=== PATIENT | female | born 1935 | race Caucasian/White ===

== ENCOUNTER 2017-11-16 12:01 | Emergency (ER) | payer MEDICARE, BC, OTHER ==
[~2017-11-16] VITALS: Ht 154.9 cm; Wt 108.9 kg
[2017-11-16] MEDS ORDERED: ATENOLOL 50MG T50 M1 PO (12:20)
[2017-11-16] MEDS ORDERED: ELIQUIS5 MG PO (12:20)
[2017-11-16] MEDS ORDERED: POTASSIUM20 PO (12:21)
[2017-11-16 12:30] LABS: ABSOLUTE EOSINOPHILS 0.1 thou/uL (0.0-0.7); ABSOLUTE LYMPHOCYTES 1.3 thou/uL (0.8-5.3); BASOPHILS 0.8 %; EOSINOPHILS 1.9 %; HEMOGLOBIN 13.6 gm/dL (12.0-15.0)
[2017-11-16 12:33] LABS: ABSOLUTE BASOPHILS 0.1 thou/uL (0.0-0.2); ABSOLUTE MONOCYTES 0.8 thou/uL (0.0-1.2); ABSOLUTE NEUTROPHILS 4.3 thou/uL (1.6-8.1); HEMATOCRIT 40.5 % (37.0-47.0); LYMPHOCYTES 19.2 %; MCH 30.7 pg (26.0-34.0); MCHC 33.6 g/dL (28.0-37.0); MCV 91.1 fL (80.0-100.0); MONOCYTES 12.6 %; MPV 9.1 fl. (7.2-11.1); NUCLEATED RBCS 0 /100WBC; PLATELET COUNT* 172 thou/uL (150-400); POLYS 65.5 %; RBC 4.44 mil/uL (4.20-5.00); RDW-CV 14.2 % (10.5-14.5); WBC 6.6 thou/uL (4.0-11.0)
[2017-11-16] MEDS ORDERED: NORVASC2.5 MG PO (12:35)
[2017-11-16] MEDS ORDERED: HYDROCHLOROTHIA25 M2 PO (12:35)
[2017-11-16] MEDS ORDERED: FOLBEE PLUS CZ1 EACH PO (12:35)
[2017-11-16] MEDS ORDERED: CYMBALTA30 MG PO (12:36)
[2017-11-16] MEDS ORDERED: TOPROL XL50 MG PO (12:36)
[2017-11-16] MEDS ORDERED: COUMADIN 5 MG TA5 M1 PO (12:36)
[2017-11-16] MEDS ORDERED: TRICOR145 MG PO (12:37)
[2017-11-16] MEDS ORDERED: TRAZODONE HCL50 MG PO (12:37)
[2017-11-16] MEDS ORDERED: PROZAC 20 MG20 MG PO (12:37)
[2017-11-16 12:38] LABS: CALCIUM 9.3 mg/dL (8.5-10.1); CREATININE 1.2 mg/dL (0.6-1.3); POTASSIUM 3.8 mmol/L (3.5-5.1)
[2017-11-16 12:43] LABS: ALBUMIN 3.1 g/dL (3.4-5.0); TOTAL BILIRUBIN 0.6 mg/dL (<0.1-1.0); TOTAL PROTEIN 7.1 g/dL (6.4-8.2)
[2017-11-16 13:38] LABS: URINE BILIRUBIN NEGATIVE (Negative); URINE BLOOD NEGATIVE (Negative); URINE CLARITY CLEAR; URINE COLOR YELLOW; URINE GLUCOSE-RANDOM NEGATIVE (Negative); URINE KETONES NEGATIVE (Negative); URINE LEUKOCYTES-REFLEX 1+ (Negative); URINE NITRITE-REFLEX POSITIVE (Negative); URINE PROTEIN NEGATIVE (Negative)
[2017-11-16 13:53] LABS: SQUAMOUS 4-10 Moderate /LPF (0-3); URINE WBC-REFLEX 0-5 Rare /HPF (0-5)
[2017-11-16 13:54] LABS: BACTERIA-REFLEX >30 Many /HPF (None Seen); CASTS None Seen /LPF (None Seen); CRYSTALS None Seen /LPF (None Seen); MUCUS None Seen strn/LPF (None Seen); URINE RBC 3-10 Few /HPF (0-2)
[2017-11-16 14:27] VITALS: BP 128/65
== END 2017-11-16 14:28 | disposition home or self-care (01) ==
LOC: M.ERS 12:01
PROVIDERS: Physician Assistant Surgical
DX: K59.00 Constipation, unspecified (principal); K21.9 Gastro-esophageal reflux disease without esophagitis; I10 Essential (primary) hypertension; M19.90 Unspecified osteoarthritis, unspecified site; I48.91 Unspecified atrial fibrillation; Z88.8 Allergy status to other drugs, medicaments and biological substances; Z96.652 Presence of left artificial knee joint; Z88.6 Allergy status to analgesic agent; Z88.0 Allergy status to penicillin

== ENCOUNTER 2018-04-12 18:56 | Inpatient (IN) | payer MEDICARE, BC, OTHER ==
[~2018-04-12] VITALS: Ht 157.5 cm; Wt 102.1 kg
[~2018-04-12 18:56] MED LIST: ATENOLOL 50MG T50 M1 PO; COUMADIN 5 MG TA5 M1 PO; CYMBALTA30 MG PO; ELIQUIS5 MG PO; FOLBEE PLUS CZ1 EACH PO; HYDROCHLOROTHIA25 M2 PO; NORVASC2.5 MG PO; POTASSIUM20 PO; PROZAC 20 MG20 MG PO; TOPROL XL50 MG PO; TRAZODONE HCL50 MG PO; TRICOR145 MG PO
[2018-04-12 18:58] VITALS: BP 158/100
[2018-04-12 20:31] LABS: HEMATOCRIT 42.2 % (37.0-47.0); HEMOGLOBIN 14.1 gm/dL (12.0-15.0); MCH 30.7 pg (26.0-34.0); MCHC 33.4 g/dL (28.0-37.0); MCV 92.1 fL (80.0-100.0); MPV 10.5 fl. (7.2-11.1); NUCLEATED RBCS 0 /100WBC; PLATELET COUNT* 133 thou/uL (150-400); RBC 4.58 mil/uL (4.20-5.00); RDW-CV 13.5 % (10.5-14.5); WBC 12.3 thou/uL (4.0-11.0)
[2018-04-12 20:40] LABS: APTT 33.8 Seconds (25.0-31.3); INR 1.3; PROTIME 13.1 Seconds (9.20-11.50)
[2018-04-12 20:50] LABS: CALCIUM 9.3 mg/dL (8.5-10.1)
[2018-04-12 20:51] LABS: POTASSIUM 2.9 mmol/L (3.5-5.1)
[2018-04-12 20:54] LABS: URINE BILIRUBIN NEGATIVE (Negative); URINE BLOOD 2+ (Negative); URINE CLARITY CLEAR; URINE COLOR YELLOW; URINE GLUCOSE-RANDOM 1+ (Negative); URINE KETONES NEGATIVE (Negative); URINE LEUKOCYTES-REFLEX NEGATIVE (Negative); URINE NITRITE-REFLEX NEGATIVE (Negative); URINE PROTEIN 3+ (Negative)
[2018-04-12 21:07] LABS: ALBUMIN 2.9 g/dL (3.4-5.0); CK-MB MASS 2.6 ng/mL (<0.5-3.6); TOTAL PROTEIN 7.4 g/dL (6.4-8.2); TROPONIN-I LEVEL 0.22 ng/mL (<0.06)
[2018-04-12 21:17] LABS: ABSOLUTE MONOCYTES 0.7 thou/uL (0.0-1.2); ABSOLUTE NEUTROPHILS 10.6 thou/uL (1.6-8.1); ATYPICAL LYMPHS 1 %
[2018-04-12 21:18] LABS: LARGE PLATELETS OCCASIONAL
[2018-04-12 21:19] LABS: PLATELET ESTIMATE DECREASED
[2018-04-12 21:20] LABS: POLYCHROMASIA 1+
[2018-04-12] MEDS ORDERED: LEVAQUIN 500 M500 M2 PO (21:34)
[2018-04-12] MEDS ORDERED: TESSALON PERLE100 MG PO (21:35)
[2018-04-12] MEDS ORDERED: LASIX 20 MG TAB20 MG PO (21:38)
[2018-04-12 21:46] LABS: SQUAMOUS 4-10 Moderate /LPF (0-3)
[2018-04-12 21:47] LABS: BACTERIA-REFLEX 1-9 Few /HPF (None Seen); CASTS None Seen /LPF (None Seen); CRYSTALS None Seen /LPF (None Seen); URINE RBC 3-10 Few /HPF (0-2); URINE WBC-REFLEX 0-5 Rare /HPF (0-5)
[2018-04-12 23:45] VITALS: BP 167/84
[2018-04-13 00:15] VITALS: BP 122/83
[2018-04-13 04:00] VITALS: BP 151/82
--- NOTE | 2018-04-13 09:23 | NUR ---
PT ADMITTED TO ROOM 213 DURING TEACHER; VSS, LABORED BREATHING, A+OX3, VISIBLE SKIN ALTERATIONS, UP SBA, FALL RISK, SEPSIS SCREEN POSITIVE. SHE IS ABLE TO COMMUNICATE HER NEEDS TO STAFF EFFECTIVELY. SHE HAS DENIED THE NEED FOR PAIN MEDICATION UP TO THIS TIME. NPO FOR A CARDIOLOGY CONSULT TODAY.
--- NOTE | 2018-04-13 09:41 | NUR ---
ASSUMED PT CARE AT 0700 REPORT RECEIVED FROM NURSE PT IS AOX4 WHEEZY LUNG SOUND. ON NS AT 100 CC PER HOUR. VSS. O2 SATURATION IS 97% ON 2 L NC. NO TEMP. PT VOICED NO CONCERN. DR DELAROSA PAGED REGARDING WHEEZING IN LUNGS. SUGGESTS TO STOP FLUID UNTIL HE COMES TO SEE PT. NS STOPPED. FLOEY IN PATENT. ASSESSMENT PERFORMED REFER TO CHARTING. TROPONIN IS 0.44 THIS AM, CARDIAC CHEMICAL INSPECTOR AWARE. NPO STATUS MAINTAINED AT THIS TIME FOR CARDIO CONSULT. WILL CONTINUE TO MONITOR
[2018-04-13 10:03] LABS: ABSOLUTE MONOCYTES 1.1 thou/uL (0.0-1.2); ABSOLUTE NEUTROPHILS 5.1 thou/uL (1.6-8.1); BASOPHILS 0.6 %; HEMATOCRIT 38.6 % (37.0-47.0); HEMOGLOBIN 12.7 gm/dL (12.0-15.0); LYMPHOCYTES 14.3 %; MCH 30.5 pg (26.0-34.0); MCHC 32.9 g/dL (28.0-37.0); MCV 92.7 fL (80.0-100.0); MPV 11.3 fl. (7.2-11.1); NUCLEATED RBCS 0 /100WBC; PLATELET COUNT* 112 thou/uL (150-400); POLYS 70.1 %; RBC 4.16 mil/uL (4.20-5.00); WBC 7.3 thou/uL (4.0-11.0)
[2018-04-13 10:04] LABS: MAGNESIUM 1.7 mg/dL (1.8-2.4)
[2018-04-13 11:02] LABS: ALBUMIN 2.3 g/dL (3.4-5.0); CALCIUM 8.5 mg/dL (8.5-10.1); CREATININE 0.9 mg/dL (0.6-1.3); POTASSIUM 3.2 mmol/L (3.5-5.1); TOTAL BILIRUBIN 0.6 mg/dL (<0.1-1.0); TOTAL PROTEIN 5.9 g/dL (6.4-8.2)
--- NOTE | 2018-04-13 11:07 | NUR ---
PT MAG 1.[address] DELAROSA AWARE. NO ORDERS FOR ELECTROLYTE OBTAINED
--- NOTE | 2018-04-13 13:25 | NUR ---
Nutrition: Pt seen for sepsis DX and consult for OBE. Wt: 225#. Sepsis PNA - resolved. On lasix. Alb 2.3, K= 3.2. H/o CHF, afib, HTN. Pt s/p fall IT HELP DESK MANAGER, is constipated. Diet just advanced to Heart Healthy. BMI: 39.9. Hopeful for good po intake with meals. Low risk.
--- NOTE | 2018-04-13 14:56 | NUR ---
Pt is A&O. Resides at home with her son. Pt states that she is independent with ADLs, son does the driving. Pt has a walker that she can use for mobility. No hx of HH. Hx of snf, does not recall the name of the agency. Goal is to dc home. Following for disposition.
--- NOTE | 2018-04-13 15:40 | NUR ---
PT TOOK SHOWER, UP TO CHAIR AFTER SHOWER. RN CLINICAL RESEARCH IN PLACE. MEDICATIONS ADMINISTERED. NYASTATIN POWDER APPLIED TO ABDOMINAL CREASES.DRESSING REAPPLIED ON SKIN TEARS IN LOWER LEVI EXTREMITIES. SPUTUM CULTURE OBTAINED . SENT DOWN TO LAB.
[2018-04-13 16:50] VITALS: BP 125/78
--- NOTE | 2018-04-13 16:56 | EKG ---
[place] [address] ELECTROCARDIOGRAM REPORT Name: GAURANGDESEANNury Rushing Room: [address] ADM IN M.R.#: [id number] Admission: 04/12/18 Attend Phys: Brian Bennett Discharge: Date of : 33 Report #: [id number] THIS REPORT FOR: //name// [facility] ED Test Date: 2018-04-12 Test Time: 18:59:08 Pat Name: FELIX MERLOS Department: Room: [facility] Gender: F Environmental Services Associate: Porfirio ASH : 1935 Requested By: Margaret Castillo Order Number: [id number] MD: Ricco De Dios Measurements Intervals [place] Rate: 132 P: OR: QRS: 16 QRSD: 90 T: -13 QT: 324 QTc: 480 Interpretive Statements Atrial fibrillation Anteroseptal infarct, old, possible Repolarization abnormality, prob rate related No previous ECG available for comparison Electronically Signed On 04-13-2018 16:56:33 PACKAGING SALES CONSULTANT by Ricco De Dios [email or web address] <ELECTRONICALLY SIGNED> By: Ricco De Dios MD, [facility] 04/13/18 1656 1859 185 Ricco De Dios MD, FACC /EPI
--- NOTE | 2018-04-13 17:08 | 2DMMODE ---
[place] [address] 2 D/M-MODE ECHOCARDIOGRAM Name: FELIX MERLOS Room: [address] IN [facility]#: [id number] Admission: 04/12/18 Attend Phys: Moshe Moses Discharge: Date of : 33 Date of Service: 04/13/18 1707 Report #: [id number] THIS REPORT FOR: //name// APPROVED REPORT Study performed: 04/13/2018 16:21:27 EXAM: Comprehensive 2D, Doppler, and color-flow Echocardiogram Patient Location: In-Patient Room #: [facility] Status: routine BSA: 2.01 HR: 90 bpm BP: 151/82 mmHg Rhythm: NSR Other Information Study Quality: Good Indications Atrial Fibrillation Sepsis Elevated Troponin 2D Dimensions IVSd: 14.59 (7-11mm) LVOT Diam: 20.63 (18-24mm) LVDd: 35.62 mm PWd: 12.90 (7-11mm) Ascending Ao: 30.66 (22-36mm) LVDs: 24.29 (25-40mm) Aortic Root: 29.92 mm Volumes Left Atrial Volume (Systole) LA ESV Index: 33.80 mL/m2 Aortic Valve AoV Peak Kwame.: 1.11 m/s AO Peak Gr.: 4.89 mmHg LVOT Max P.54 mmHg AO Mean Gr.: 2.74 mmHg LVOT Mean P.78 mmHg LVOT Max V: 0.62 m/s AO V2 VTI: 19.87 cm LVOT Mean V: 0.41 m/s SHASHANK (VTI): 1.86 cm2 LVOT V1 VTI: 11.07 cm Mitral Valve MV Decel. Time: 141.86 [place] [address] 2 D/M-MODE ECHOCARDIOGRAM Name: FELIX MERLOS Room: [address] IN .R.#: [id number] Admission: 04/12/18 Attend Phys: Moshe Moses Discharge: Date of : 33 Date of Service: 04/13/18 1707 Report #: [id number] MV PHT: 41.14 ms MVA (PHT): 5.35 cm2 TDI Medial E' Kwame.: 0.13 m/s Lateral E' Kwame.: 0.15 m/s Pulmonary Valve PV Peak Kwame.: 0.57 m/s PV Peak Gr.: 1.29 mmHg Tricuspid Valve RAP Estimate: 5.00 mmHg TR Peak Gr.: 52.00 mmHg RVSP: 57.00 mmHg PA Pressure: 57.00 mmHg Left Ventricle The left ventricle is normal size. There is normal LV segmental wall motion. Mild to moderate concentric left ventricular hypertrophy. Left ventricular systolic function is normal. LVEF is 60-65%. This study is not technically sufficient to allow evaluation of the LV diastolic function due to atrial fibrillation. Right Ventricle The right ventricle is normal size. The right ventricular systolic function is normal. Atria Left atrium is moderately dilated. Right atrium is moderately dilated. Aortic Valve The aortic valve is normal in structure. No aortic regurgitation is present. There is no aortic valvular stenosis. Mitral Valve The mitral valve is normal in structure. Trace mitral regurgitation. No evidence of mitral valve stenosis. Tricuspid Valve The tricuspid valve is normal in structure. Mild tricuspid regurgitation. Moderate pulmonary hypertension. Pulmonic Valve The pulmonary valve is normal in structure. [place] [address] 2 D/M-MODE ECHOCARDIOGRAM Name: GAURANGDESEANNury Rushing Room: [address] IN [facility].#: [id number] Admission: 04/12/18 Attend Phys: Moshe Moses Discharge: Date of : 33 Date of Service: 04/13/18 1707 Report #: [id number] Great Vessels The aortic root is normal in size. IVC is normal in size and collapses >50% with inspiration. Pericardium There is no pericardial effusion. <Conclusion> The left ventricle is normal size. Mild to moderate concentric left ventricular hypertrophy. Left ventricular systolic function is normal. LVEF is 60-65%. This study is not technically sufficient to allow evaluation of the LV diastolic function due to atrial fibrillation. Left atrium is moderately dilated. Right atrium is moderately dilated. Mild tricuspid regurgitation. Moderate pulmonary hypertension. IVC is normal in size and collapses >50% with inspiration. <ELECTRONICALLY SIGNED> By: Ricco De Dios MD, FACC 04/13/18 1707 06 06 Ricco De Dios MD, FACC /INF
[2018-04-13 19:20] VITALS: BP 122/70
--- NOTE | 2018-04-13 22:40 | NUR ---
PT ASSESSED, REFER TO CHARTING FOR DETAILS. VSS. TRACING AFIB ON MONITOR. PT DENIES PAIN. Q2 TURNS FOR SKIN INTEGRITY. GUIDRY IN PLACE WITH DD. PT DENIES ANY FIRTHER NEEDS. RESTING COMFORTABLY AT THIS TIME. FALL PRECATUIONS IN PLACE. HOURLY ROUNDING FOR SAFETY. CLWR.
[2018-04-14] VITALS: BP 101/76
[2018-04-14 04:00] VITALS: BP 145/65
--- NOTE | 2018-04-14 05:42 | NUR ---
PT SLEPT COMFORTABLY THIS SHIFT, AWAKENING ONLY WHEN TURNED, AT TIMES BECOMING CONFUSED. PT IS EASILY REORIENTED. VSS. NO NEW CONCERNS A THIS TIME.
--- NOTE | 2018-04-14 08:00 | NUR ---
RECEIVED REPORT. ASSUMED CARE OF PT AT 0730. VSS. CARDIAC MONTIORING IN PLACE AFIB WITH PVC. AM ASSESSMENT AND VITALS COMPLETED CHARTED. PT ALERT AND ORIENTED. PT ON RA. IV SALINE LOCKED. PT ASSISTED UP TO CHAIR THIS AM. GUIDRY REMOVED. PT DENEIS ANY PAIN OR DISCOMFOR THIS AM. NOTED VARIOUS SKIN TEARS/BRUISING TO EXTREMITIES. PT INFORMED OF PLAN OF CARE. PT COMMUNCIATES UNDERSTANDING. CALL LIGHT IS WIHTIN REACH. WILL CONTINUE TO MOTNIOR FOR DURAITON OF SHIFT.
[2018-04-14 08:21] VITALS: BP 148/89
--- NOTE | 2018-04-14 11:48 | CON ---
[address] [address] CONSULTATION Name: FELIX MERLOS Room: [address] IN M.R.#: [id number] Admission: 04/12/18 Attend Phys: Brian Bennett Discharge: Date of : 33 Report #: [id number] THIS REPORT FOR: //name// CC: Mary Moses DATE OF SERVICE: 04/13/2018 INFECTIOUS DISEASE CONSULTATION ATTENDING PHYSICIAN: Moshe Moses M.D. REASON FOR EVALUATION: Sepsis, pneumonitis. HISTORY OF PRESENT ILLNESS: Chart reviewed, the patient examined. This is an 82-year-old woman who was admitted through the Emergency Room with complaints of encephalopathy, pattern of early sepsis and likely pneumonitis. She was evaluated earlier in the day yesterday, was felt to have bronchitis and was treated with systemic antibiotics. However, later on, was found to be confused. She does not recall details. It is not clear that she has had fevers. She does admit to a cough productive of some greenish sputum. She is not aware of fevers or chills. She has had some anorexia and poor p.o. intake. No specific abdominal-related complaints, nausea or diarrhea. She was empirically placed on antibiotics with ceftriaxone. Additional corroborating evidence include lactic acid of 2.3. Chest x-ray, some left basilar infiltrate. Blood cultures are sterile thus far. She is somewhat lethargic at this point. Denies any chest pain, although her troponin level was elevated. ALLERGIES: LISTED TO PENICILLIN, NAPROXEN, TRAMADOL AND DILTIAZEM. CURRENT MEDICATIONS: Include ceftriaxone 1 g daily, p.r.n. analgesics and antiemetics. PAST MEDICAL HISTORY: Hypertension, history of gastroesophageal reflux, some atrial fibrillation, arthritis and total knee replacement on the left. SOCIAL HISTORY: Nonsmoker. No ethanol. FAMILY HISTORY: Noncontributory. REVIEW OF SYSTEMS: Ten-point review of systems otherwise unremarkable, with exception as noted in the history of present illness. PHYSICAL EXAMINATION: GENERAL: She appears chronically ill, mildly undernourished. She is perhaps mildly encephalopathic, is lethargic, [place] [address] CONSULTATION Name: FELIX MERLOS Room: [address] IN [facility]#: [id number] Admission: 04/12/18 Attend Phys: Brian Bennett Discharge: Date of : 33 Report #: [id number] VITAL SIGNS: T-max 100.1, more recently 99.3; pulse 78; respirations 23 and blood pressure 151/82. SKIN: Warm. There are no rashes. HEENT: Unremarkable. Extraocular muscles intact. NECK: Supple. LUNGS: Few scattered coarse breath sounds. She has some expiratory wheezes. HEART: Distant, irregular, rate controlled. I do not appreciate a murmur. ABDOMEN: Soft. There is no significant distention. There are no peritoneal signs. It is nontender. EXTREMITIES: Distal lower extremities have trace edema. Otherwise unremarkable. GENITOURINARY: Deferred. RECTAL: Deferred. LABORATORY DATA: Blood cultures sterile thus far. Serial troponins of 0.39 and 0.44. Lactic acid serially was 2.3 and 1.5. Urinalysis 0-5 white cells, 1-9 bacteria. CBC: White count of 12.3, H and H 14.1 and 42.2 and platelets of 133,000. Differential showed a neutrophilia, 10,600. Electrolytes: Sodium 134, potassium 2.9, chloride 98, bicarbonate is 28, anion gap of 8, BUN and creatinine 11 and 1.0 and glucose was slightly elevated at 172. LFTs unremarkable. Albumin of 2.9. Total protein of 7.4. Estimated GFR of 53. ASSESSMENT AND PLAN: Febrile illness with respiratory tract symptoms and may have an early pneumonitis on the left. She does experience some systemic symptoms as well, including encephalopathy. I think it is reasonable to continue empiric antimicrobial therapy. Ceftriaxone should give us adequate coverage. We will go ahead and check Pneumococcal urinary antigen, although it may not be rapid and white blood cultures and would like to encourage to produce sputum and we will try to collect a sputum culture. We will see how she does clinically over the course of the next 24 to 48 hours. <ELECTRONICALLY SIGNED> By: Jeison Velázquez MD 04/14/18 1148 1002 [id number] Velázquez MD /nt
[2018-04-14 11:53] LABS: CALCIUM 9.5 mg/dL (8.5-10.1)
[2018-04-14 11:55] LABS: POTASSIUM 2.9 mmol/L (3.5-5.1)
[2018-04-14 12:19] VITALS: BP 138/62
[2018-04-14 16:00] VITALS: BP 126/66
--- NOTE | 2018-04-14 17:10 | NUR ---
VSS. CARDIAC MONTIORING IN PLACE WITH NO CHANGES THIS SHIFT. PT REMAINS ALERT AND ORIENTED. PT ON RA. IV SALINE LOCKED. PT DENIES ANY PAIN OR DISCOMFORT THIS SHIFT. PT PROGRESSINGS TOWARDS GOALS. PT IS UP WITH ASSISTANCE. CALL LIGHT IS WITHIN REACH. WILL CONTINUE TO MOTNIOR FOR DURAITON OF SHIFT.
--- NOTE | 2018-04-14 23:25 | NUR ---
ASSESSMENT COMPLETE. VSS. TRACING AFIB WITH PVC'S ON MONITOR. PT DENIES PAIN, SOA, N/V/D. REFER TO CHARTING FOR DETAILS. HOURLY ROUNDING FOR PT SAFETY. FALL PRECAUTIONS IN PLACE. CLWR
[2018-04-15] VITALS: BP 153/72
[2018-04-15 04:00] VITALS: BP 147/60
[2018-04-15 05:13] LABS: HEMATOCRIT 38.2 % (37.0-47.0); HEMOGLOBIN 12.6 gm/dL (12.0-15.0); MCH 30.6 pg (26.0-34.0); MCHC 33.1 g/dL (28.0-37.0); MCV 92.3 fL (80.0-100.0); MPV 10.7 fl. (7.2-11.1); RBC 4.14 mil/uL (4.20-5.00); RDW-CV 14.1 % (10.5-14.5); WBC 5.5 thou/uL (4.0-11.0)
[2018-04-15 05:32] LABS: CALCIUM 9.9 mg/dL (8.5-10.1); CREATININE 0.9 mg/dL (0.6-1.3); POTASSIUM 3.8 mmol/L (3.5-5.1)
[2018-04-15 08:02] VITALS: BP 165/66
--- NOTE | 2018-04-15 08:10 | NUR ---
RECEIVED REPORT. ASSUMED CARE OF PT AT 0730. VSS. CARDIAC MONTIORING IN PLACE AFIB WITH PVC. AM ASSESSMENT AND VITALS COMPELTED CHARTED. PT ALERT AND ORIETNED BUT FORGETFUL. PT ON RA WITH O2 SAT AT 95% NOTED WHEEZING. PT DENIES ANY PAIN OR DISCOMFORT. PT IS SITTING UP IN CHAIR THIS AM. PT INFORMED OF PLAN OF CARE. CALL LIGHT IS WITHIN REACH. WILL CONTINUE TO MONITOR FOR DURATION OF SHIFT.
--- NOTE | 2018-04-15 11:47 | NUR ---
Spoke with regarding disposition, anticipate that Pt will be able to dc home today with HH. Therapies to see Pt today. Pt resides at the [facility]. Following.
[2018-04-15 12:00] VITALS: BP 129/49
[2018-04-15 16:00] VITALS: BP 145/83
--- NOTE | 2018-04-15 19:03 | NUR ---
VSS. CARDIAC MONITORING IN PLACE IWTH NO CHANGES. PT PROGRESSING TOWARDS GOALS. PT REMAINS ON RA. IV SALINE LOCKED. PT HAS NO PAIN. PT IS UP WITH STAND BY ASSISTANCE. CALL LIGHT IS WITHIN REACH. WILL CONTINUE TO MONITOR FOR DURAITON OF SHIFT.
[2018-04-15 19:10] VITALS: BP 146/75
--- NOTE | 2018-04-15 21:27 | NUR ---
PT ASSESSMENT COMPLETE. VSS. PT TRACING AFIB WITH PVCS ON MONITOR. PT DENIES PAIN, SOA,N/V/D. PT IS SLEEPING ON AND OFF IN RECLINER SHE REFUSES TO SLEEP IN BED. FALL PRECAUTIONS IN PLCE. HOURLY ROUNDING FOR SAFETY. CLWR. REFER TO COMPUTER CHARTING FOR DETAILS.
[2018-04-16 00:18] VITALS: BP 153/61
[2018-04-16 04:00] VITALS: BP 143/73
--- NOTE | 2018-04-16 05:02 | NUR ---
PT SLEPT IN RECLINER T/O THIS SHIFT. UP TO BR WITH SBA AND WALKER. PT HAS BEEN COMPLIANT WITH CALL LIGHT THIS SHIFT. FALL PRECAUTIONS IN PLACE. CLWR. HOURLY ROUNDING FOR SAFETY.
[2018-04-16 08:05] VITALS: BP 101/63
--- NOTE | 2018-04-16 08:41 | NUR ---
ASSUMED PT CARE AT 0700, PT SITTING IN RECLINER. FALL PRECAUTIONS IN PLACE, MACHINE SILVER STRIPPER TRACING AFIB WITH PVCS. LS CRACKLES IN LEFT UPPER AND LOWER LOBE WITH AUDIBLE WHEEZING IN CHEST. PT IS 91% RA. AFEBRILE, NON PRODUCTIVE LOOSE COUGH. VSS.
[2018-04-16 08:47] LABS: HEMATOCRIT 38.1 % (37.0-47.0); HEMOGLOBIN 12.8 gm/dL (12.0-15.0); MCH 30.9 pg (26.0-34.0); MCHC 33.7 g/dL (28.0-37.0); MCV 91.7 fL (80.0-100.0); MPV 11.1 fl. (7.2-11.1); RBC 4.16 mil/uL (4.20-5.00); WBC 6.3 thou/uL (4.0-11.0)
[2018-04-16 09:10] LABS: CALCIUM 10.2 mg/dL (8.5-10.1); CREATININE 0.9 mg/dL (0.6-1.3); MAGNESIUM 1.8 mg/dL (1.8-2.4); POTASSIUM 3.1 mmol/L (3.5-5.1); TROPONIN-I LEVEL 0.17 ng/mL (<0.06)
[2018-04-16] MEDS ORDERED: NEBULIZER MISCELL (12:23)
[2018-04-16] MEDS ORDERED: IPRAT-ALBUT 0.5-3 ML INH (12:23)
[2018-04-16] MEDS ORDERED: CEFDINIR300 MG PO (12:23)
[2018-04-16 12:33] VITALS: BP 126/96
[2018-04-16 13:30] LABS: CALCIUM 10.3 mg/dL (8.5-10.1); CREATININE 0.9 mg/dL (0.6-1.3); POTASSIUM 3.4 mmol/L (3.5-5.1)
--- NOTE | 2018-04-16 18:46 | NUR ---
PT DISCHARGED HOME WITH DAUGHTER AND SON IN LAW VIA WC WITH NURSING STAFF AT APPROX 1750. THIS NURSE CONTACTED CARDIOLOGY AND PTS PRIMARY CARE OFFICE TO SCHEDULE 7 DAY FOLLOW UP, UNABLE TO REACH ANYONE DUE TO OFFICES CLOSING EARLY D/T INCLEMENT WEATHER. PRESCRIPTIONS CALLED INTO PHARMACY, DISCHARE TEACHING GIVEN AND FAMILY/PT STATE UNDERSTANDING. IV AND SYSTEMS SOFTWARE MANAGER REMOVED.
--- NOTE | 2018-04-17 14:26 | NUR ---
PT.DISCHARGED YESTERDAY. PT.HAD LEFT WITH PRESCRIPTION FOR NEBULIZER. SON IN LAW CALLED NSG.POULTRY HATCHERY LABORER TO SEE WHAT COULD BE DONE. SHE CHECKED WITH [facility] BUT THEY DO NOT CARRY THEM ANY LONGER. ANA OBTAINED ANOTHER PRESCRIPTION FOR NEBULIZER FROM . FAXED IT,FACE SHEET, AND DISCHARGE SUMMARY TO [facility]. SHE CALLED AND SAID THEY CAN DELIVER TONIGHT OR TOMORROW TO PT.S HOME. CALLED CARLEY NICOLE AND INFORMED OF THIS. HE WAS VERY APPRECIATIVE.
== END 2018-04-16 18:40 | disposition home health service (06) | DRG 871 ==
LOC: M.ERS 18:56 → M.2W 21:40 → M.TBA-ER 21:40 → M.2W 21:40
PROVIDERS: Family Medicine; Internal Medicine; Specialist; ADMIT Internal Medicine
DX: A41.9 Sepsis, unspecified organism (principal); J15.6 Pneumonia due to other Gram-negative bacteria; I50.33 Acute on chronic diastolic (congestive) heart failure; J96.90 Respiratory failure, unspecified, unspecified whether with hypoxia or hypercapnia; G93.40 Encephalopathy, unspecified; I13.0 Hypertensive heart and chronic kidney disease with heart failure and stage 1 through stage 4 chronic kidney disease, or unspecified chronic kidney disease; K21.9 Gastro-esophageal reflux disease without esophagitis; M19.90 Unspecified osteoarthritis, unspecified site; Z96.652 Presence of left artificial knee joint; E87.6 Hypokalemia; I48.2 Chronic atrial fibrillation; N18.3 Chronic kidney disease, stage 3 (moderate); K59.00 Constipation, unspecified; Z88.0 Allergy status to penicillin; Z88.8 Allergy status to other drugs, medicaments and biological substances; Z79.899 Other long term (current) drug therapy

== ENCOUNTER 2019-02-22 08:31 | Inpatient (IN) | payer MEDICARE, BC, OTHER ==
[~2019-02-22] VITALS: Ht 162.6 cm; Wt 92.1 kg
[~2019-02-22 08:31] MED LIST changes: +CEFDINIR300 MG PO; +IPRAT-ALBUT 0.5-3 ML INH; +LASIX 20 MG TAB20 MG PO; +LEVAQUIN 500 M500 M2 PO; +NEBULIZER MISCELL; +TESSALON PERLE100 MG PO
[2019-02-22 08:35] VITALS: BP 208/107
[2019-02-22] MEDS ORDERED: POTASSIUM CHLO10 MEQ PO (08:43)
[2019-02-22] MEDS ORDERED: COUMADIN 5 MG TA5 M1 PO (08:43)
[2019-02-22] MEDS ORDERED: ATENOLOL 25 MG25 M1 PO (08:45)
[2019-02-22] MEDS ORDERED: HYDROCHLOROTHIA25 M2 PO (08:46)
[2019-02-22 08:58] LABS: ABSOLUTE BASOPHILS 0.1 thou/uL (0.0-0.2); ABSOLUTE EOSINOPHILS 0.1 thou/uL (0.0-0.7); ABSOLUTE MONOCYTES 0.8 thou/uL (0.0-1.2); ABSOLUTE NEUTROPHILS 4.6 thou/uL (1.6-8.1); BASOPHILS 0.8 %; EOSINOPHILS 1.7 %; HEMATOCRIT 40.8 % (37.0-47.0); HEMOGLOBIN 13.8 gm/dL (12.0-15.0); LYMPHOCYTES 15.9 %; MCH 30.5 pg (26.0-34.0); MCHC 33.8 g/dL (28.0-37.0); MCV 90.2 fL (80.0-100.0); MONOCYTES 11.8 %; MPV 9.2 fl. (7.2-11.1); NUCLEATED RBCS 0 /100WBC; PLATELET COUNT* 148 thou/uL (150-400); POLYS 69.8 %; RBC 4.52 mil/uL (4.20-5.00); RDW-CV 13.9 % (10.5-14.5); WBC 6.6 thou/uL (4.0-11.0)
[2019-02-22 09:02] LABS: URINE BILIRUBIN NEGATIVE (Negative); URINE BLOOD NEGATIVE (Negative); URINE CLARITY CLEAR; URINE COLOR YELLOW; URINE GLUCOSE-RANDOM NEGATIVE (Negative); URINE KETONES NEGATIVE (Negative); URINE LEUKOCYTES-REFLEX 1+ (Negative); URINE PROTEIN TRACE (Negative); URINE UROBILINOGEN 0.2 E.U./dl (0.2-1.0)
[2019-02-22 09:03] LABS: URINE NITRITE-REFLEX POSITIVE (Negative)
[2019-02-22 09:04] LABS: CALCIUM 10.2 mg/dL (8.5-10.1); CREATININE 1.2 mg/dL (0.6-1.3); POTASSIUM 3.9 mmol/L (3.5-5.1)
[2019-02-22 09:05] LABS: INR 1.1; PROTIME 11.7 Seconds (9.20-11.50)
[2019-02-22 09:07] LABS: BACTERIA-REFLEX >30 Many /HPF (None Seen); CASTS None Seen /LPF (None Seen); MUCUS 0-3 Light strn/LPF (None Seen); SQUAMOUS 0-3 Few /LPF (0-3); URINE RBC 0-2 Rare /HPF (0-2); URINE WBC-REFLEX 6-15 Few /HPF (0-5)
[2019-02-22 09:08] LABS: CRYSTALS None Seen /LPF (None Seen)
[2019-02-22 09:09] LABS: ALBUMIN 3.2 g/dL (3.4-5.0); TOTAL BILIRUBIN 0.6 mg/dL (<0.1-1.0); TOTAL PROTEIN 7.2 g/dL (6.4-8.2)
[2019-02-22 11:55] VITALS: BP 176/71
[2019-02-22 12:00] VITALS: BP 158/82
[2019-02-22 13:15] VITALS: BP 159/71
--- NOTE | 2019-02-22 14:08 | NUR ---
NEWSPAPER DELIVERY DRIVER: CALLED TO ROOM FOR CODE STROKE 13:10 PT EXHIBITED LEFT FACIAL PARALYSIS, GARBLED SPEECH. FSBS 114. PT TAKED DIRECTLY TO CT FOR NCCT OF HEAD. RETURN TO ROOM NIHSS 2, SYMPTOMS RESOLVED IN CT.
--- NOTE | 2019-02-22 14:30 | NUR ---
UPON ENTERING PT ROOM AT APPROXIMATELY 1310 IT WAS DISCOVERED THAT PT HAD LEFT SIDE INEXTENCTION, LEFT SIDE WAS FLACCID WITH LEFT SIDE FACIAL DROOP AND SLURRED SPEECH. LAST KNOWN OK WAS 1245. CODE STROKE CALLED, PT TAKEN TO CT. CT SHOWS POSSIBLE INFARCT PER PHYSICIAN NEUROLOGY CONSULTED STA, NEW ORDERS RECEIVED FOR STAT MRI/MRA HEAD AND NECK. PT CURRENTLY IN MRI.
[2019-02-22 16:00] VITALS: BP 182/80
--- NOTE | 2019-02-22 16:47 | 2DMMODE ---
[place] [address] 2 D/M-MODE ECHOCARDIOGRAM Name: FELIX MERLOS Room: [address] IN [facility]#: [id number] Admission: 02/22/19 Attend Phys: Mona Walden, Discharge: Date of : 33 Date of Service: 02/22/19 1646 Report #: [id number] THIS REPORT FOR: //name// APPROVED REPORT Study performed: 02/22/2019 15:22:55 EXAM: Comprehensive 2D, Doppler, and color-flow Echocardiogram Patient Location: In-Patient Room #: [facility] Status: routine BSA: 1.95 HR: 54 bpm BP: 158/82 mmHg Rhythm: Atrial Fibrillation Other Information Study Quality: Good Indications CVA/TIA Echo Enhancing Agent Indication: Rule out Shunt Agent(s) / Amount(s) Used: Agitated Saline 10 cc 2D Dimensions IVSd: 13.00 (7-11mm) LVOT Diam: 21.25 (18-24mm) LVDd: 40.64 mm PWd: 12.75 (7-11mm) Ascending Ao: 30.89 (22-36mm) LVDs: 21.13 (25-40mm) Aortic Root: 29.98 mm Volumes Left Atrial Volume (Systole) LA ESV Index: 26.90 mL/m2 Aortic Valve AoV Peak Kwame.: 1.09 m/s AO Peak Gr.: 4.77 mmHg LVOT Max P.62 mmHg AO Mean Gr.: 2.51 mmHg LVOT Mean P.84 mmHg LVOT Max V: 0.64 m/s AO V2 VTI: 25.75 cm LVOT Mean V: 0.43 m/s SHASHANK (VTI): 2.03 cm2 LVOT V1 VTI: 14.75 [place] [address] 2 D/M-MODE ECHOCARDIOGRAM Name: FELIX MERLOS Room: [address] IN [facility].#: [id number] Admission: 02/22/19 Attend Phys: Mona Walden, Discharge: Date of : 33 Date of Service: 02/22/19 1646 Report #: [id number] Mitral Valve MV Decel. Time: 159.54 ms MV PHT: 46.27 ms MVA (PHT): 4.76 cm2 TDI Medial E' Kwame.: 0.13 m/s Lateral E' Kwame.: 0.14 m/s Pulmonary Valve PV Peak Kwame.: 0.57 m/s PV Peak Gr.: 1.30 mmHg Tricuspid Valve RAP Estimate: 5.00 mmHg TR Peak Gr.: 43.63 mmHg RVSP: 48.00 mmHg PA Pressure: 48.00 mmHg Left Ventricle The left ventricle is normal size. There is normal LV segmental wall motion. Mild concentric left ventricular hypertrophy. Left ventricular systolic function is normal. LVEF is 55-60%. This study is not technically sufficient to allow evaluation of the LV diastolic function due to atrial fibrillation. Right Ventricle The right ventricle is normal size. The right ventricular systolic function is normal. Atria The left atrium size is normal. Interatrial septum is intact without evidence of ASD or PFO. The right atrium size is normal. Aortic Valve The aortic valve is normal in structure. No aortic regurgitation is present. There is no aortic valvular stenosis. Mitral Valve The mitral valve is normal in structure. Trace mitral regurgitation. No evidence of mitral valve stenosis. Tricuspid Valve The tricuspid valve is normal in structure. Mild tricuspid regurgitation. Moderate pulmonary hypertension. The RVSP is 50-55 mmHg. [place]mon[place] [address] 2 D/M-MODE ECHOCARDIOGRAM Name: FELIX MERLOS Room: [address]#: [id number] Admission: 02/22/19 Attend Phys: Mona Walden, Discharge: Date of : 33 Date of Service: 02/22/19 1646 Report #: [id number] The pulmonary valve is normal in structure. Trace pulmonic regurgitation. Great Vessels The aortic root is normal in size. IVC is normal in size and collapses >50% with inspiration. Pericardium There is no pericardial effusion. <Conclusion> The left ventricle is normal size. Mild concentric left ventricular hypertrophy. Left ventricular systolic function is normal. LVEF is 55-60%. This study is not technically sufficient to allow evaluation of the LV diastolic function due to atrial fibrillation. Interatrial septum is intact without evidence of ASD or PFO. Trace mitral regurgitation. Mild tricuspid regurgitation. Moderate pulmonary hypertension. The RVSP is 50-55 mmHg. IVC is normal in size and collapses >50% with inspiration. <ELECTRONICALLY SIGNED> By: Ricco De Dios MD, FACC 02/22/19 164 164 45 Ricco De Dios MD, FACC /INF
--- NOTE | 2019-02-22 17:09 | EKG ---
[place] [address] ELECTROCARDIOGRAM REPORT Name: FELIX MERLOS Room: [address] ADM IN .R.#: [id number] Admission: 02/22/19 Attend Phys: Mona Walden MD Discharge: Date of : 34 Report #: [id number] THIS REPORT FOR: //name// [facility] ED Test Date: 2019-02-22 Test Time: 08:42:40 Pat Name: FELIX MERLOS Department: Room: [facility] Gender: F Milling Supervisor: : 1935 Requested By: Nhan Hernandez Order Number: [id number] MD: Ricco De Dios Measurements Intervals [place] Rate: 73 P: TX: QRS: 1 QRSD: 165 T: -27 QT: 386 QTc: 426 Interpretive Statements Atrial fibrillation Inferior infarct, age indeterminate, possible Compared to ECG 04/12/2018 18:59:08 Myocardial infarct finding still present Electronically Signed On 02-22-2019 17:09:19 CAB STARTER by Ricco De Dios [email or web address] <ELECTRONICALLY SIGNED> By: Ricco De Dios MD, [facility] 02/22/19 1709 Ricco De Dios MD, FAC /EPI
[2019-02-22 20:00] VITALS: BP 167/63
[2019-02-23] VITALS (7 sets, daily range): BP systolic 130–165; BP diastolic 53–87
[2019-02-23 04:32] LABS: HEMOGLOBIN 13.2 gm/dL (12.0-15.0); MCH 30.5 pg (26.0-34.0); MCHC 33.9 g/dL (28.0-37.0); MCV 90.1 fL (80.0-100.0); MPV 9.4 fl. (7.2-11.1); RBC 4.33 mil/uL (4.20-5.00); RDW-CV 13.9 % (10.5-14.5)
[2019-02-23 04:34] LABS: INR 1.1; PROTIME 11.4 Seconds (9.20-11.50)
--- NOTE | 2019-02-23 04:45 | NUR ---
ASSUMED PT CARE AT APPROX 1930. PT IS AWAKE AND ORIENTED X4. VSS ON ROOM AIR. PT IS TRACING AFIB(RATE CONTROLLED) IN THE PHARMACY ASSOCIATE. ASSESSMENT DONE AND CHARTED. NIHSS=0. PT C/O NECK PAIN RELIEVED BY PAIN MEDICATION GIVEN PER JUN. PT IS ABLE TO SLEEP MOST OF THE NIGHT. CALL LIGHT WITHIN REACH. HIGH FALL PRECAUTIONS IN PLACE. PUREWICK CHANGED AT 0400. PT REPOSITIONED Q2HRS (REFUSED SOME TURNS-EDUCATION GIVEN) HOURLY ROUNDING DONE FOR PT SAFETY.
[2019-02-23 04:54] LABS: ALBUMIN 2.9 g/dL (3.4-5.0); ALKALINE PHOSPHATASE 52 U/L (46-116); ANION GAP 9 mmol/L (7-16); BUN 15 mg/dL (7-18); CALCIUM 9.6 mg/dL (8.5-10.1); CHLORIDE 106 mmol/L (98-107); CHOLESTEROL 127 mg/dL (<200); CO2 26 mmol/L (21-32); CREATININE 1.1 mg/dL (0.6-1.3); GLUCOSE 83 mg/dL (70-99); HDL CHOLESTEROL 41 mg/dL (>40); LDL CHOLESTEROL 75 mg/dL (<100); MAGNESIUM 1.8 mg/dL (1.8-2.4); POTASSIUM 3.9 mmol/L (3.5-5.1); SGOT 17 U/L (15-37); SGPT 10 U/L (30-65); SODIUM 141 mmol/L (136-145); TC:HDL 3.1 Ratio (Not establshd); TOTAL BILIRUBIN 0.5 mg/dL (<0.1-1.0); TOTAL PROTEIN 6.5 g/dL (6.4-8.2); TRIGLYCERIDE 59 mg/dL (<150); VLDL 12 mg/dL (<40)
[2019-02-23 04:55] LABS: SERUM ASSESSMENT Clear
--- NOTE | 2019-02-23 13:34 | NUR ---
Pt is A&O. Pt resides at [facility] with her son, son is wc bound, but independent. Pt uses a walker for mobility. Independent with ADLs. IADLs are shared, they uses a transportation company for errands. No home o2. Hx of HH. Hx of SNF at [facility]. Supportive dtr that lives in [place]. [place]al [place] [facility], therapies to eval. Following.
[2019-02-24] VITALS: BP 149/76
[2019-02-24 03:06] LABS: GLYCOHEMOGLOBIN (HGB A1C) 5.4 % (4.8-5.6)
[2019-02-24 04:00] VITALS: BP 196/101
[2019-02-24 04:47] LABS: INR 1.4; PROTIME 14.1 Seconds (9.20-11.50)
[2019-02-24 07:40] VITALS: BP 156/68
--- NOTE | 2019-02-24 07:45 | NUR ---
ASSUMED PT CARE AT APPROX 1930. PT IS AWAKE AND ORIENTED X4 BUT CAN BE FORGETFUL AND CONFUSED SOMETIMES, PT IS EASILY REDIRECTIBLE. VSS ON ROOM AIR. SIGNAL HELPER IS TRACING AFIB-RATE CONTROLLED. NIHSS DONE-SEE CHARTING. HOURLY ROUNDING DONE. POSITION CHANGES DONE AND PT IS KEPT CLEAN AND DRY. CALL LIGHT WITHIN REACH. HIGH FALL PRECAUTIONS IN PLACE. HOURLY ROUNDING DONE FOR PT SAFETY.
--- NOTE | 2019-02-24 11:23 | NUR ---
ASSUMED PT CARE AT 0800. AOX3, O2 SAT 90'S RA, TRACING AFIB ON TELE. PT DENIES PAIN. PT FALL RISK. PT INCONTINENT OF URINE, ON EXTERNAL CATH. VSS, AM ASSESSMENT CHARTED, MEDS GIVEN PER MAR. OT/PT ON BOARD. BED/CHAIR ALARM, CALL LIGHT WITHIN REACH, WILL CONTINUE TO MONITOR.
--- NOTE | 2019-02-24 11:53 | NUR ---
ORCHESTRA DIRECTOR: Met with patient. Noted ambulating in [place]eno with walker accompanied by Nicholas. Patient reported some shortness of breath post walk, was still able to speak, mildly winded. Noted mild left facial weakness. Seemed to forget was in hospital briefly, reoriented easily. Does not remember seeing a redeye gunner or having blood checked while on Warfarin. Will need additional education including son.
[2019-02-24 12:14] VITALS: BP 155/86
[2019-02-24] MEDS ORDERED: ENOXAPARIN30 MG/0.1 SUBQ (14:52)
[2019-02-24] MEDS ORDERED: LIPITOR10 MG PO (14:52)
--- NOTE | 2019-02-24 15:12 | NUR ---
PT HAS BEEN ACCEPTED TO INPT REHAB, NOTIFIED PT AND DTR/BEN. SHE WILL NOTIFY REST OF FAMILY GAVE DTR NUMBER TO REHAB
[2019-02-24] MEDS ORDERED: ATENOLOL 25 MG25 M1 PO (15:29)
[2019-02-24 15:30] VITALS: BP 155/86
[2019-02-24 16:00] VITALS: BP 175/78
--- NOTE | 2019-02-24 17:59 | NUR ---
PT DISCHARGED TO REHAB. GIVE REPORT TO ISAÍAS SIU.
--- NOTE | 2019-02-24 18:57 | CON ---
[facility] [address] [place] [address] CONSULTATION Name: FELIX MERLOS Room: [address] IN M.R.#: [id number] Admission: 02/22/19 Attend Phys: Mona Walden MD Discharge: 02/24/19 Date of : 33 Report #: [id number] THIS REPORT FOR: //name// CC: Mona Cuellar DATE OF SERVICE: 02/22/2019 HISTORY OF PRESENT ILLNESS: This is an 83-year-old female patient who was evaluated by me as a stroke protocol. The history is not very clear in this patient. The patient lives with her son. Son provides some history. Son indicated that the patient is losing her memory where she is unable to take her medication properly. She will either forget to take it or forget that she has already taken it. She came to Emergency after a fall. She does not know why the fall occurred, but it did not occur because she passed out. Combining all the data, it would appear that the fall, probably occurred because she had a neglect of right-sided stroke, which caused the weakness leading to the fall as typically occur in this stroke. That assessment is based on the imaging study as well as history from the patient and the son. She was admitted because she fell, hit her head. In the Emergency Room, she had a head CT, which demonstrated possible stroke by the preliminary report, but the final report is different. Because of the history of CT scan showing the stroke and I talked to the radiologist Dr. Burleson and he indicated even ____, it looked like stroke and because of that the timing of the patient's stroke was a question. At about 12:45, the nurses had noticed that the patient had become weak on the right side and those symptoms occurred in relation to the patient's blood pressure going down somewhat at ____ and after we gave her the fluid bolus it returned back to the baseline and when I saw the patient did not have any significant weakness on the left side. We sent her for stat MRI of the brain. I will dictate rest of them later. <ELECTRONICALLY SIGNED> By: Taco Love MD 02/24/19 1857 [id number] Love MD /nt
--- NOTE | 2019-02-24 18:57 | CON ---
[facility] [address] [place] [address] CONSULTATION Name: FELIX MERLOS Room: [address] IN M.R.#: [id number] Admission: 02/22/19 Attend Phys: Mona Walden MD Discharge: 02/24/19 Date of : 33 Report #: [id number] THIS REPORT FOR: //name// CC: Mona Cuellar DATE OF SERVICE: 02/22/2019 CONTINUATION OF PREVIOUS DICTATION We did a stat MRI and MRA on this patient. The patient's MRI demonstrates 2 strokes. Both of them are showing on T2 weighted images and I discussed with the radiologist. It looks like they are about couple of days' duration, which will be consistent with a history that the stroke probably happened sometime yesterday. There was also a nonocclusive embolus at the basilar tip, which is nonocclusive. REVIEW OF SYSTEMS: As described above. PAST MEDICAL HISTORY: Positive for atrial fibrillation. The patient is on Coumadin. She does not know when was the last INR checked and it was 1.1 here when she was admitted here today. Her H and H are normal. On examination, she does not appear to have any hemianopsia. She can move her upper and lower left extremities against gravity. 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 She also has a possible nonocclusive embolus in basilar artery. This is as difficult situation as it can get. Multiple things need to be addressed and was addressed during her management. Firstly, question of TPA was addressed. Initial feeling was that the symptom happened at 12:45, but the symptom had just transiently become worse that time and symptoms most likely started yesterday and that will correlate with the MRI finding. Because of that, she was not considered a TPA candidate. She was still given that option and so was the son and they also decided not to get TPA. The question of embolus in the basilar tip is even more difficult. If that embolus is removed, she will be predisposed for reperfusion injury as well as a hemorrhage into the stroke area. If it is not removed, she can have more emboli from there. We have to take risk either way. I discussed that frankly with the patient and the son. They want conservative treatment and I agree with that. I also called [facility] interventional radiologist to get their opinion. They are also of the same opinion that they will not do any intervention at the moment. The management is going to be conservative at the moment. I will suggest keeping her blood pressure somewhere between 170-200 systolic. I will give her some extra fluid. The question of anticoagulation need [place] [address] CONSULTATION Name: FELIX MERLOS Room: [address] IN M.R.#: [id number] Admission: 02/22/19 Attend Phys: Mona Walden MD Discharge: 02/24/19 Date of : 33 Report #: [id number] her DVT dose of Lovenox is not a problem. I will probably like her to get on heparin soon. I will pick heparin because it is easy to reverse if she starts bleeding. I will get an echocardiogram done. If she has an active thrombus there, then we will be more aggressive on anticoagulation. Otherwise, we may have to wait and see how she does. As mentioned above, I did call [facility] and they do not want to do any intervention. All the options of the patient were discussed with her. More than 50 minutes of time was spent taking care of this patient today and most of the time was spent counseling the family and coordinating her care. The patient was discussed with 2 radiologists here, who read the patient's MRI and MRA. I discussed the patient with [facility] neurologist and they discussed with interventional radiologist. The patient was discussed with the nurses multiple times and the patient was also discussed with Dr. Ridley. I have given some instruction to the nurses about the blood pressure and the fluid. I will follow this patient with you tomorrow and we will make readjustment at the moment, but situation and the patient like her, it is pretty unpredictable and the family and the patient understand that. <ELECTRONICALLY SIGNED> By: Taco Love MD 02/24/19 1857 1713 [id number] Love MD /nt
--- NOTE | 2019-02-24 18:57 | EEG ---
[address] [address] EEG STUDY REPORT Name: FELIX MERLOS Сергей Room: [address] IN M.R.#: [id number] Admission: 02/22/19 Attend Phys: Mona Walden MD Discharge: 02/24/19 Date of : 34 Report #: [id number] THIS REPORT FOR: //name// CC: Mona Cuellar DATE OF SERVICE: 02/23/2019 This patient is being evaluated for altered mental status. EEG was done by placing the electrode by standard 10-20 system of electrode placement. Both referential and sequential montages were used for recording. Background activity in this patient's EEG is about 8-9 Hz and 30 microvolt. It is a symmetrical activity. It is slow on both sides. The patient became drowsy and that is associated with further slowing. Photic stimulation is unremarkable. Throughout the record, no active epileptiform activity was noticed. IMPRESSION: This patient's EEG is intermixed with theta range slowing on both sides. That is a nonspecific abnormality, which can occur with dementia, encephalopathy, effect of psychotropic medication, etc. Clinical correlation is recommended. <ELECTRONICALLY SIGNED> By: Taco Love MD 02/24/19 1857 [id number] Love MD /nt
== END 2019-02-24 17:52 | DRG 64 ==
LOC: M.ERS 08:31 → M.2W 09:22 → M.TBA-ER 09:22 → M.2W 12:02
PROVIDERS: Family Medicine; Internal Medicine; ADMIT Internal Medicine
DX: I63.9 Cerebral infarction, unspecified (principal); G93.41 Metabolic encephalopathy; N39.0 Urinary tract infection, site not specified; G81.94 Hemiplegia, unspecified affecting left nondominant side; D68.59 Other primary thrombophilia; K21.9 Gastro-esophageal reflux disease without esophagitis; I10 Essential (primary) hypertension; M19.90 Unspecified osteoarthritis, unspecified site; Z96.652 Presence of left artificial knee joint; I48.91 Unspecified atrial fibrillation; I16.0 Hypertensive urgency; R47.01 Aphasia; I27.20 Pulmonary hypertension, unspecified; Z88.0 Allergy status to penicillin; Z88.8 Allergy status to other drugs, medicaments and biological substances; Z88.2 Allergy status to sulfonamides; Z79.82 Long term (current) use of aspirin; Z79.899 Other long term (current) drug therapy

== ENCOUNTER 2019-02-24 16:24 | Inpatient (IN) | payer MEDICARE, BC, OTHER ==
[~2019-02-24] VITALS: Ht 160 cm; Wt 92.0 kg
[~2019-02-24 16:24] MED LIST changes: +ATENOLOL 25 MG25 M1 PO; +ENOXAPARIN30 MG/0.1 SUBQ; +LIPITOR10 MG PO; +POTASSIUM CHLO10 MEQ PO
[2019-02-24 18:22] VITALS: BP 134/72
--- NOTE | 2019-02-24 18:45 | NUR ---
PT RESTS IN BED AND IS ORIENTATED TO ROOM AND CONTROLS.BED ALARM ON WITH SIDE RAILS UP. PT ALERT AND PLESANT.RESPIRATIONS EVEN AND UNLABORED.
[2019-02-24 20:17] VITALS: BP 90/69
[2019-02-25 03:50] LABS: HEMATOCRIT 39.5 % (37.0-47.0); HEMOGLOBIN 13.2 gm/dL (12.0-15.0); MCH 30.1 pg (26.0-34.0); MCHC 33.4 g/dL (28.0-37.0); MCV 90.1 fL (80.0-100.0); MPV 9.3 fl. (7.2-11.1); RBC 4.39 mil/uL (4.20-5.00); WBC 5.5 thou/uL (4.0-11.0)
[2019-02-25 03:58] LABS: CREATININE 1.2 mg/dL (0.6-1.3); INR 1.8; POTASSIUM 3.5 mmol/L (3.5-5.1); PROTIME 18.2 Seconds (9.20-11.50)
--- NOTE | 2019-02-25 05:20 | NUR ---
PT ADMITTED TO REHAB UNIT PRIOR TO SHIFT CHANGE. PT ORIENTED TO PERSON ONLY. ATTEMPTS TO ORIENT PT TO CALL LIGHT UNSUCESSFUL. BED ALARM ON DUE TO PT'S IMPULSIVE BEHAVIOR. ATTEMPTED TO STAND PT WITH GAIT BELT AND WALKER. PT UNABLE TO STAND. PT SETS BED ALARM ON FREQUENTLY. PT ALWAYS INCONTINENT OF URINE AND ATTEMPTING TO CLIMB OUT OF BED. PT DOES NOT REMEBER INSTRUCTIONS TO CALL FOR ASSIST WITH BED LOPES. FALL PRECAUTIONS IN PLACE, BED ALARM ON, FREQUENT VISUAL CHECKS DONE.
[2019-02-25 08:24] VITALS: BP 172/84
--- NOTE | 2019-02-25 12:50 | NUR ---
Nutrition: Pt with CVA to Rehab. Uses walker. Regular diet. Fall MACHINE SPRING FORMER d/t UTI complications, CVA. Wt: 194#. H/o HTN, afib, GERD. Albumin 2.9. Will follow weekly. Low nutrition risk.
--- NOTE | 2019-02-25 16:14 | NUR ---
ASSESSMENT COMPLETE. PT CONFUSED AND FORGETFUL THROUGHOUT THE DAY. PT IS IMPULSIVE AND DOES NOT USE THE CALL LIGHT. PT IS UP ONE ASSIST WITH WALKER AND GAIT BELT. PT TAKES MEDICATIONS WITHOUT DIFFICULTY. TOLERATING MEALS. DENIES PAIN. VSS. INCONT AT TIMES. NEED UA. PT IS FALL RISK, BED AND CHAIR ALARM IN PLACE. SEE ASSESSMENT AND VITALS FOR OTHER DETAILS. CALL LIGHT WITHIN REACH, WILL CONTINUE PLAN OF CARE
--- NOTE | 2019-02-25 16:47 | NUR ---
SW met with pt as pt was waiting to be able to have supper. Pt says she lives at home with her oldest son Juan José who "was born handicapped". Pt youngest son Justyn lives in [facility]. Pt talkative and confused at times; pt kept wanting to get up, redirected and encouraged to stay in wc and read magazine until dinnertime. SW to continue to follow to assist with safe dc planning.
[2019-02-25 19:40] LABS: URINE BILIRUBIN NEGATIVE (Negative); URINE BLOOD NEGATIVE (Negative); URINE CLARITY CLEAR; URINE COLOR YELLOW; URINE GLUCOSE-RANDOM NEGATIVE (Negative); URINE KETONES NEGATIVE (Negative); URINE LEUKOCYTES-REFLEX NEGATIVE (Negative); URINE NITRITE-REFLEX NEGATIVE (Negative); URINE PROTEIN NEGATIVE (Negative); URINE UROBILINOGEN 0.2 E.U./dl (0.2-1.0)
[2019-02-25 20:17] VITALS: BP 184/95
--- NOTE | 2019-02-25 23:25 | NUR ---
ASSUMED CARE AT 1930. PATIENT MOVED TO ROOM 321 TO BE CLOSER TO NURSE STATION. ORIENTED ONLY TO SELF, BUT DOES FOLLOW COMMANDS. UP WITH SBA, GAIT BELT, WALKER. DID VOID PER TOILET AT HS. NOW INCONTINENT OF URINE CONSTANTLY. SKIN CARE DONE, TURNED Q2H. TAKES PILLS WHILE WITH WATER. LARGE PILLS BROKEN IN HALF. NO RESULTS FROM MOM GIVEN EARIER. U/A SENT AND RESULTED. NO C/O PAIN. HOURLY ROUNDS CONTINUE. BED ALARM ON. CALL LITE IN REACH. CURRENTLY APPEARS SLEEPING.
--- NOTE | 2019-02-26 06:15 | NUR ---
COOPERATIVE THROUGH NIGHT. USED CALL LITE APPROPRIATELY. VOIDED PER BSC AND WAS INCONTINENT AT TIMES. MEDICATED FOR HEAD AND NECK PAIN WITH APAP WITH RELIEF. HOURLY ROUNDS CONTINUE. BED ALARM ON. CALL LITE IN REACH.
[2019-02-26 08:04] VITALS: BP 169/76
--- NOTE | 2019-02-26 16:04 | NUR ---
ASSUMMED CARE OF PT AT O730, PT ALERT, FORGETFUL, PT TRANSFERS WITH SBA, GB WALKER, NEEDS CUEING, PT DENIES PAIN, TAKING FOOD AND FLUIDS WELL, PT C/O CONSTIPATION, MOM GIVEN X 1, PT STATES TAKES DULCOLAX TABS AT HOME THIS IS A CHRONIC PROBLEM FOR HER, WILL INFORM PHYSICIAN AND OBTAIN ORDER, PT VOIDS IN LARGE AMOUNTS AND IS ALSO INCONTINENT OF URINE, WEARS BRIEF, AMBULATES TO BATHROOM, AMBULATED TO DININGROOM FOR LUNCH, PT UP IN CHAIR MOST OF SHIFT, USES CALL LIGHT INTERMITTENTLY, SETS OFF ALARMS AT TIMES, PARTICIPATED IN ALL THERAPIES, HOURLY ROUNDING COMPLETED, ASSESSMENT COMPLETE, WILL CONTINUE TO MONITOR.
[2019-02-26 19:55] VITALS: BP 143/66
--- NOTE | 2019-02-27 05:32 | NUR ---
ASSUMED CARES AT 1920. ALERT AND ORIENTED. PLEASANT BUT CAN BE FORGETFUL. DENIED ANY PAIN. MIN ASSIST WITH GAIT BELT AND WALKER. UP TO BSC. ABLE TO HAVE LARGE BM AFTER SUPPOSITORY GIVEN. PULLUPS. NO INCONTINENCE NOTED OVERNIGHT BUT DID GET UP SEVERAL TIMES TO VOID. SLEPT VERY LITTLE. CALL LIGHT IN REACH AND BED ALARM ON.
[2019-02-27 08:26] VITALS: BP 152/78
--- NOTE | 2019-02-27 16:30 | NUR ---
ASSUMMED CARE OF PT AT 0730, PT ALERT, FORGETFUL, UP WITH ASSIST OF 1, GB WALKER, CUEING, PT SETS OFF ALARMS AT TIMES AND USES CALL LIGHT APPROPRIATELY AT TIMES, PT C/O PAIN IN RIGHT EAR, MEDICATED X 1 FOR DISCOMFORT, PT UP IN CHAIR MUCH OF SHIFT, TAKING FOOD AND FLUIDS WELL, C/O ITCHINESS ON CHEST, LOTION APPLIED, PHYSICIAN AWARE, HAD LARGE BM THIS SHIFT, VOIDS PER TOILET, NO INCONTINENCE THIS SHIFT, BUTTOCKS RED, RIGHT MORE THAN LEFT, BARRIER OINTMENT APPLIED, PT REPOSTIONED PARTICIPATED IN THERAPIES, HOURLY ROUNDING COMPLETED, ASSESSMENT COMPLETED, WILL CONTINUE TO MONITOR.
[2019-02-27 19:45] VITALS: BP 127/62
--- NOTE | 2019-02-27 22:25 | NUR ---
ASSUMED CARE AT 1930. PATIENT RESTING IN BED. VOIDED PER TOILET. UP WITH GAIT BELT, WALKER. DOES OWN CARES. TAKES PILLS WHOLE WITH WATER. POTASSIUM BROKEN IN HALF PER REQUEST. TURNS SELF. MEDICATED WITH APAP AT HS FOR GENERALIZED PAIN. APPEARS TO BE SLEEPING NOW. MOISTURE BARRIER APPLIED TO BUTTOCKS. CONFUSED AT TIMES. FORGETFUL. CALL LITE IN REACH. BED ALARM ON. HOURLY ROUNDS CONTINUE.
--- NOTE | 2019-02-28 05:30 | NUR ---
SLEPT BETWEEN VOIDING. HAS VOIDED SIX TIMES THUS FAR THIS SHIFT. UP TO TOILET. DOES OWN CARES. UP WITH GAIT BELT, WALKER. FORGETFUL AT TIMES, NEEDS CUEING AND REPETITION OF INSTRUCTIONS TO COMPREHEND. HOURLY ROUNDS CONTINUE. BED ALARM ON. CALL LITE IN REACH.
[2019-02-28 08:59] VITALS: BP 127/67
--- NOTE | 2019-02-28 19:54 | NUR ---
I ASSUMED CARE OF THE PATIENT AT 0700. SHE IS ALERT TO SELF AND TIME ON DEMAND, BUT NEEDS CUEING FOR OTHER ANSWERS. BED IS IN THE LOW LOCKED POSITION AND CALL LIGHT IS IN REACH. SHE IS UP IN THE BEDSIDE CHAIR MOST OF THE DAY BETWEEN THERAPY. SHE IS PLEASANTLY CONFUSED. NEW ORDERS WERE OBTAINED FOR SLEEP AIDE. HOURLY ROUNDING IS COMPLETED AND PATIENT NEEDS ARE MET. PAIN IS DENIED. SHE HAD SOME COMPANY DURING THE DAY. WILL CONTINUE TO MONITOR.
[2019-02-28 20:00] VITALS: BP 152/88
--- NOTE | 2019-02-28 20:00 | NUR ---
SITTING UP IN RECLINER AND WATCHING TV. ALERT AND ORIENTED TO NAME AND TIME. TYLENOL GIVEN FOR COMPLAINT OF HEADACHE. TOOK MEDICATIONS WHOLE WITH WATER. SITTING ON CHAIR ALARM FOR SAFETY. CALL LIGHT WITHIN REACH.
--- NOTE | 2019-03-01 05:05 | NUR ---
NO FURTHER COMPLAINT OF PAIN. UP X TWO DURING THE NIGHT TO THE BATHROOM TO VOID. HOURLY ROUNDING IN PROGRESS.
[2019-03-01 08:00] VITALS: BP 158/85
--- NOTE | 2019-03-01 10:37 | NUR ---
MIRELLA attempted to call pt family, pt dtr Li, with no answer so SW left a detailed message requested call back with any questions or concerns in preparation for team conference on Thursday. SW to continue to follow to assist with safe dc planning.
--- NOTE | 2019-03-01 15:26 | NUR ---
ASSUMMED CARE OF PT AT 0730, PT ALERT, CONFUSED, FORGETFUL, TRANSFERS WITH SBA, GB WALKER, NEEDS CUEING, PT COMPLAINED OF NECK AND HEAD PAIN, MEDICATED PER ORDER WITH GOOD RELIEF, AMBULATES TO BATHROOM TO VOID, BUTTOCKS RED, BARRIER OINTMENT APPLIED, TAKING FOOD AND FLUIDS WELL, PARTICIPATED IN ALL THERAPIES, HOURLY ROUNDING COMPLETED, ASSESSMENT COMPLETE, WILL CONTINUE TO MONITOR.
--- NOTE | 2019-03-01 19:40 | NUR ---
SITTING UP IN RECLINER. DAUGHTER AND SON-IN-LAW IN THE ROOM VISITING. DENIES DISCOMFORT. SITTING ON A CHAIR ALARM FOR SAFETY. CALL LIGHT WITHIN REACH.
[2019-03-01 20:00] VITALS: BP 144/77
--- NOTE | 2019-03-02 05:41 | NUR ---
UP X 5 SO FAR THIS SHIFT TO THE BATHROOM TO VOID. USED CALL LIGHT APPROPRIATELY. TYLENOL GIVEN AT 2310 FOR COMPLAINT OF DISCOMFORT IN LEGS WITH RELIEF. TYLENOL GIVEN AGAIN AT 0254 FOR COMPLAINT OF PAIN IN RIGHT UPPER ARM WITH RELIEF. HOURLY ROUNDING IN PROGRESS.
[2019-03-02 08:33] VITALS: BP 154/80
--- NOTE | 2019-03-02 15:50 | NUR ---
SW and Dr Vila met with pt to review team conference summary and plan for pt to remain on rehab unit at least another week with team to reassess pt length of stay during team conference next Thursday and possible dc next Thursday. Team recommending pt have 24/ assistance or possible needs for SNF at dc. SW to discuss with pt family and SW to continue to follow to assist with safe dc planning.
--- NOTE | 2019-03-02 16:28 | NUR ---
pt has participated with therapies today and ambulates with walker and min assist of 1.pt alert but forgetfull, chair and bed alarms in use. pt denies pain. pt has been continent of bladder today and given miralax this afternoon. pt reports hx of constipation .pt does call for assist today.
[2019-03-02 19:30] VITALS: BP 115/55
--- NOTE | 2019-03-03 05:06 | NUR ---
ASSUMED PT CARE AT 1930. PT ALERT BUT CAN BE CONFUSED. UP TO BATHROOM X4 TO VOID WITH GAIT BELT, WALKER AND STANDBY ASSIST. STOOL X1 THIS SHIFT. PT DENIES PAIN. SLEPT WELL OVERNIIGHT. USES CALL LIGHT APPROPRIATELY. CALL LIGHT AND FREQUENTLY USED ITEMS IN REACH. BED ALARM ON FOR SAFETY. HOURLY ROUNDING IN PROGRESS.
[2019-03-03 07:57] VITALS: BP 159/85
--- NOTE | 2019-03-03 18:29 | NUR ---
PATIENT RESTING UP IN CHAIR. PATIEN TIS UP WITH MINIMAL ASSIST WITH WEALKER AND GAITBELT. PATIENT HAS GOOD APPETITE. PATIENT HAD COMPLAINTS OF RIGHT ARM PAIN THIS EVENING, TYLENOL GIVEN. PATIENT DENIES ANY NEEDS AT THIS TIME. CALL LIGHT WITHIN REACH.
[2019-03-03 19:41] VITALS: BP 167/92
--- NOTE | 2019-03-04 05:20 | NUR ---
ASSUMED PT CARE AT 1930. PT ALERT BUT PLEASANTLY CONFUSED. UP TO BATHROOM X4 TO VOID WITH GAIT BELT, WALKER AND STANDBY ASSIST. NO STOOL THIS SHIFT. PT DENIES PAIN AND SLEPT WELL OVERNIGHT. USES CALL LIGHT APPROPRIATELY. CALL LIGHT AND FREQUENTLY USED ITEMS IN REACH. BED ALARM ON FOR SAFETY. HOURLY ROUNDING IN PROGRESS, WILL CONTINUE TO MONITOR.
[2019-03-04 08:25] VITALS: BP 152/74
--- NOTE | 2019-03-04 15:30 | NUR ---
PT HAS WORKED WITH THERAPIES AND AMBULATES WITH WALKER,GAITBELT AND MIN ASSIST OF 1. PT CALLS TO GO TO BATHROOM AND VOIDS WELL,NO BM YET. PT REPORTS PAIN TO RT.UPPER ARM BUT REFUSES OFFER OF PAIN MEDICATION.PT ALERT BUT PLESANTLY FORGETFULL. BED AND CHAIR ALARMS IN USE.
[2019-03-04 20:00] VITALS: BP 145/70
--- NOTE | 2019-03-04 22:40 | NUR ---
ASSUMED CARE AT 1930. PATIENT RESTING IN RECLINER UNTIL HS. UP WITH ONE, GAIT BELT, WALKER. VOIDS PER TOILET. TURNS SELF. TAKES PILLS WITH WATER, SOME LARGER ONES SPLIT IN HALF. FORGETFUL AT TIMES. DENIES PAIN. USES CALL LITE WELL. HOURLY ROUNDS CONTINUE. BED AND CHAIR ALARMS IN USE.
--- NOTE | 2019-03-05 06:22 | NUR ---
SLEPT MUCH OF THE NIGHT BETWEEN VOIDS. UP WITH SBA, GAIT BELT, WALKER TO VOID PER TOILET. C/O RIGHT ARM SORE, BUT REFUSED PAIN MEDS. HOURLY ROUNDS CONTINUE. BED ALARM ON. CALL LITE IN REACH.
[2019-03-05 07:44] VITALS: BP 150/65
[2019-03-05 20:04] VITALS: BP 124/57
--- NOTE | 2019-03-06 05:01 | NUR ---
PT ALERT AND ORIENTED. VSS ON RA. ASSESSMENT DOCUMENTED. PT SLEPT MOST OF SHIFT. XANAX AND AMBIEN GIVEN PER REQUEST. MEDS GIVEN PER EMAR. FALL PRECAUTION IN PLACE. CALLL LIGHT WITHIN REACH. HOURLY ROUNDINGS MADE. WILL CONTINUE TO MONITOR.
--- NOTE | 2019-03-06 05:21 | NUR ---
PT ALERT AND ORIENTED. VSS ON RA. ASSESSMENT DOCUMENTED. MEDS GIVEN PER EMAR. PT SLEPT MOST OF SHIFT. UP TO BATHROOM WITH WALKER, GAIT BELT. STANDBY ASSIST. FALL PRECAUTION IN PLACE. CALLL LIGHT WITHIN REACH. PT CALLS OUT APPRORIATELY. NO BM THIS SHIFT. WILL CONTINUE TO MONITOR.
[2019-03-06 07:46] VITALS: BP 140/63
--- NOTE | 2019-03-06 16:26 | NUR ---
pt has participated with therapies and calls for assist to bathroom and remains continent ,able to cleanse self and adjust clothing. pt alert and orientated to self and hopes to go home after team this week.
[2019-03-06 19:30] VITALS: BP 138/60
--- NOTE | 2019-03-07 05:02 | NUR ---
ASSUMED PATIENT CARE AT 1930. PT ALERT AND ORIENTED, POLITE AND COOPERATIVE WITH CARES. PT UP IN RECLINER AT SHIFT CHANGE, TO BED WITH GAITBELT, WALKER AND ASSIST OF ONE. PT UP SEVERAL TIMES TO VOID, STOOL X1 THIS SHIFT. PT REQUESTED TO TRANSFER TO RECLINER AT 0400 AND IS NOW SLEEPING IN SAME. TAKES PILLS WHOLE ALL AT ONCE WITH WATER. TYLENOL AT HS PER PT REQUEST FOR NECK PAIN. CALL LIGHT AND FREQUENTLY USED ITEMS IN REACH. CHAIR ALARM ON FOR SAFETY. WILL CONTINUE TO MONITOR.
[2019-03-07 07:49] VITALS: BP 137/66
--- NOTE | 2019-03-07 16:57 | NUR ---
ASSUMMED CARE OF PT AT 0730, PT ALERT, FORGETFUL, TRANSFERS WITH SBA GB WALKER, TAKING FOOD AND FLUIDS WELL, COMPLAINED OF RIGHT ARM PAIN, MEDICATED X 1 FOR PAIN, AMBULATES TO BATHROOM TO VOID, PARTICIPATED IN ALL THERAPIES, REFUSED MEALS IN DININGROOM, HOURLY ROUNDING COMPLETED, ASSESSMENT COMPLETE, WILL CONTINUE TO MONITOR.
[2019-03-07 19:30] VITALS: BP 133/64
--- NOTE | 2019-03-08 05:53 | NUR ---
ASSUMED PT CARE AT 1930. PT ALERT AND ORIENTED BUT CAN BE FORGETFUL. TOOK EVENING MEDS WHOLE WITH WATER WITHOUT DIFFICUTLY. PRN TYLENOL ONCE FOR LEFT ARM PAIN. UP TO BATHROOM TO VOID SEVERAL TIMES OVERNIGHT WITH GAITBELT, WALKER AND SBA. NO STOOL THIS SHIFT. USES CALL LIGHT APPROPRIATELY. CALL LIGHT AND FREQUENTLY USED ITEMS IN REACH. HOURLY ROUNDING IN PROGRESS, WILL CONTINUE TO MONITOR.
[2019-03-08 08:00] VITALS: BP 145/73
--- NOTE | 2019-03-08 15:15 | NUR ---
SW called pt dtr in preparation for team conference tomorrow but pt dtr did not answer so SW left a detailed message and requested call back with any questions or comments. SW to continue to follow to assist with safe dc planning.
--- NOTE | 2019-03-08 16:27 | NUR ---
ASSUMMED CARE OF PT AT 0730, PT ALERT, FORGETFUL, TRANSFERS WITH MIN ASSIST GB WALKER, AMBULATES TO BATHROOM TO VOID, BM THIS SHIFT, C/O PAIN IN ARM AND NECK, MEDICATED PER ORDER, TAKING FOOD AND FLUIDS WELL, PARTICIPATED IN ALL THERAPIES, HOURLY ROUNDING COMPLETED, ASSESSMENT COMPLETE, WILL CONTINUE TO MONITOR.
[2019-03-08 19:45] VITALS: BP 133/69
--- NOTE | 2019-03-08 20:10 | NUR ---
SITTING UP IN RECLINER VISITING WITH 2 VISITORS. AMBULATED TO THE BATHROOM WITH SBA, GAITBELT, WALKER. HAD A LARGE BM. TOOK MEDICATIONS WHOLE WITH ICE TEA. TYLENOL GIVEN PER REQUEST FOR COMPLAINT OF RIGHT ARM PAIN RATED "5". CALL LIGHT WITHIN REACH.
--- NOTE | 2019-03-09 06:10 | NUR ---
UP X 2 DURING THE NIGHT TO THE BATHROOM. NO FURTHER COMPLAINT OF PAIN. HOURY ROUNDING IN PROGRESS.
[2019-03-09 08:00] VITALS: BP 136/61
--- NOTE | 2019-03-09 12:36 | NUR ---
AM ASSESSMENT AND VITAL SIGNS COMPLETED DOCUMENTED. PT HAS BEEN ALERT AND COOPERATIVE AND IS MOD I TO SUPERVISION WITH MOST TASKS. PT USES THE CALL LIGHT APPROPRIATELY BEFORE GETTING UP. TYLENOL GIVEN FOR RIGHT SHOULDER PAIN WITH GOOD RESULTS. FALL PRECAUTIONS AND HOURLY ROUNDING CONTINUE.
--- NOTE | 2019-03-09 17:01 | NUR ---
MIRELLA and Dr Vila met with pt to review team conference summary and plan for pt to dc home on Sunday 03/11 after possible mod I trial tomorrow and then home with HH services to follow. MIRELLA called pt dtr and reviewed plan as well and pt dtr was pleased with the pt progress in therapies and with the plan for pt to be able to dc home. MIRELLA discussed HH agency options and pt/family preference for [facility]. SW to continue to follow to assist with safe dc planning.
[2019-03-09 19:45] VITALS: BP 137/67
--- NOTE | 2019-03-09 23:36 | NUR ---
ASSUMED CARE AT 1930. PATIENT RESTING IN RECLINER THEN TO BED AROUND 2014. UP WITH GAIT BELT, WALKER. NEEDS A LITTLE HELP RISING FROM LYING TO SITTING, BUT ONCE STANDING DOES BETTER. VOIDS PER TOILET. DOES OWN CARES. TAKES PILLS WHOLE WITH WATER. TOOK APAP AT HS, WITH TRAZADONE. HOURLY ROUNDS CONTINUE. BED ALARM ON. CALL LITE IN REACH.
--- NOTE | 2019-03-10 00:51 | NUR ---
BED ALARM SOUNDING, NURSE RESPONDED IMMEDIATELY TO FIND PATIENT WITH LEGS OVER THE SIDE OF THE BED. PATIENT STATED SHE NEEDED TO VOID. APPEARED CONFUSED AND FORGOT WHAT SHE NEEDED WHEN THIS NURSE WAS PUTTING ON HER SHOES IN PREPARATION TO AMBULATE TO TOILET. REORIENTED. AMB WITH SLOW GAIT TO TOILET, VOIDED AND DID SELF CARES. ON WAY BACK TO BED, PATIENT STATED, "I'M CONFUSED" AND ASKED WHAT SHE WAS DOING. REMINDED HER THAT SHE WAS WALKING BACK TO BED. ALSO INSTRUCTED HER THAT IT IS NOT YET 0100 AND STILL DARK OUT, AND SHE STILL NEEDS TO USE CALL LITE BEFORE GETTING UP AND THERAPIES WILL EVALUATE HER FOR MOD I STATUS IN MORNING WHEN DAYLIGHT, BUT NOT BEFORE. UNTIL APPROVED BY THERAPIES AND PHYSICIAN SHE STILL NEEDS TO USE CALL LITE BEFORE GETTING UP. PATIENT VERBALIZED UNDERSTANDING, BUT IT NEEDED TO BE REPEATED A COUPLE OF TIMES. BED ALARM ON. CALL LITE IN REACH.
--- NOTE | 2019-03-10 05:38 | NUR ---
SLEPT MUCH OF THE SHIFT. LAST TIME SHE AWAKENED TO VOID, SHE USED HER CALL LITE AND SEEMED MORE ORIENTED THAN THE LAST TIME SHE GOT UP. VOIDS PER TOILET. UP WITH GAIT BELT, WALKER. ABLE TO GET OWN LEGS BACK INTO BED. HOURLY ROUNDS CONTINUE. BED ALARM ON. CALL LITE IN REACH.
[2019-03-10 08:05] VITALS: BP 126/57
[2019-03-10] MEDS ORDERED: HYDROCHLOROTHIA25 M2 PO (11:24)
[2019-03-10] MEDS ORDERED: NORVASC5 MG PO (11:24)
[2019-03-10] MEDS ORDERED: ELIQUIS5 MG PO (11:24)
--- NOTE | 2019-03-10 15:48 | NUR ---
ASSUMMED CARE OF PT AT 0730, PT ALERT, FORGETFUL AT TIMES, MOD I IN ROOM, SBA IN HALLWAYS, TAKING FOOD AND FLUIDS WELL, DENIED NEED FOR PAIN MEDICATION THIS SHIFT, PARTICIPATED IN ALL THERAPIES,HOURLY ROUNDING COMPLETED, ASSESSMENT COMPLETE, WILL CONTINUE TO MONITOR.
[2019-03-10 20:20] VITALS: BP 141/63
--- NOTE | 2019-03-11 06:14 | NUR ---
Pt c/o pain to R shoulder. Took two doses of acetaminophen per pt request. Reports partial relief from pain upon ressessment. VSS. Pt up ad bolivar in room, primarily when using the bathroom. Otherwise no complaints. States she is ready to be discharged later today. Will continue to monitor.
[2019-03-11 08:10] VITALS: BP 138/62
[2019-03-11 11:26] VITALS: BP 138/62
[2019-03-11 12:37] VITALS: BP 138/62
--- NOTE | 2019-03-11 12:38 | NUR ---
Pt to dc home with son and other family support available. SW discussed HH services options and arranged with pt/family preference of [facility]; SW faxed referral and final orders/med list to HH. Pt dtr to provide pt ride home; no other dc needs expressed.
== END 2019-03-11 14:45 | disposition home health service (06) | DRG 56 ==
LOC: M.REH 16:24
PROVIDERS: ADMIT Physical Medicine & Rehabilitation
DX: I69.354 Hemiplegia and hemiparesis following cerebral infarction affecting left non-dominant side (principal); I63.81 Other cerebral infarction due to occlusion or stenosis of small artery; N39.0 Urinary tract infection, site not specified; I48.20 Chronic atrial fibrillation, unspecified; D68.9 Coagulation defect, unspecified; R47.01 Aphasia; I10 Essential (primary) hypertension; B96.20 Unspecified Escherichia coli [E. coli] as the cause of diseases classified elsewhere; K21.9 Gastro-esophageal reflux disease without esophagitis; I27.20 Pulmonary hypertension, unspecified; Z96.652 Presence of left artificial knee joint; R29.810 Facial weakness; K59.00 Constipation, unspecified; Z88.0 Allergy status to penicillin; Z88.2 Allergy status to sulfonamides; Z88.8 Allergy status to other drugs, medicaments and biological substances; Z91.81 History of falling; Z79.899 Other long term (current) drug therapy; Z79.01 Long term (current) use of anticoagulants; Z79.51 Long term (current) use of inhaled steroids

== ENCOUNTER 2019-05-06 20:49 | Emergency (ER) | payer MEDICARE, BC, OTHER ==
[~2019-05-06] VITALS: Ht 157.5 cm; Wt 81.7 kg
[~2019-05-06 20:49] MED LIST changes: +NORVASC5 MG PO
[2019-05-06 21:24] LABS: ABSOLUTE EOSINOPHILS 0.1 thou/uL (0.0-0.7); EOSINOPHILS 1.7 %; HEMOGLOBIN 14.2 gm/dL (12.0-15.0); NUCLEATED RBCS 0 /100WBC
[2019-05-06 21:26] LABS: CALCIUM 10.5 mg/dL (8.5-10.1); CREATININE 1.5 mg/dL (0.6-1.3); POTASSIUM 3.2 mmol/L (3.5-5.1)
[2019-05-06 21:29] LABS: ABSOLUTE BASOPHILS 0.1 thou/uL (0.0-0.2); ABSOLUTE NEUTROPHILS 3.1 thou/uL (1.6-8.1); BASOPHILS 1.1 %; HEMATOCRIT 41.9 % (37.0-47.0); LYMPHOCYTES 31.8 %; MCH 30.4 pg (26.0-34.0); MCV 89.6 fL (80.0-100.0); MONOCYTES 15.6 %; MPV 10.6 fl. (7.2-11.1); PLATELET COUNT* 166 thou/uL (150-400); POLYS 49.8 %; RBC 4.68 mil/uL (4.20-5.00); RDW-CV 13.9 % (10.5-14.5); WBC 6.3 thou/uL (4.0-11.0)
[2019-05-06 21:31] LABS: ALBUMIN 3.3 g/dL (3.4-5.0); TOTAL BILIRUBIN 0.6 mg/dL (<0.1-1.0); TOTAL PROTEIN 7.3 g/dL (6.4-8.2)
[2019-05-06 23:53] LABS: URINE BILIRUBIN NEGATIVE (Negative); URINE BLOOD NEGATIVE (Negative); URINE CLARITY CLEAR; URINE COLOR YELLOW; URINE GLUCOSE-RANDOM NEGATIVE (Negative); URINE KETONES NEGATIVE (Negative); URINE LEUKOCYTES-REFLEX 1+ (Negative); URINE NITRITE-REFLEX NEGATIVE (Negative); URINE PROTEIN NEGATIVE (Negative); URINE SPECIFIC GRAVITY 1.015 (1.005-1.030)
[2019-05-07 00:16] LABS: HYALINE CASTS 4-10 Moderate /LPF (None Seen); SQUAMOUS >10 Many /LPF (0-3)
[2019-05-07 00:17] LABS: URINE RBC None Seen /HPF (0-2); URINE WBC-REFLEX 6-15 Few /HPF (0-5)
[2019-05-07 00:18] LABS: BACTERIA-REFLEX 1-9 Few /HPF (None Seen); CRYSTALS None Seen /LPF (None Seen)
[2019-05-07 00:20] VITALS: BP 106/55
== END 2019-05-07 00:20 | disposition home or self-care (01) ==
LOC: M.ERS 20:49
PROVIDERS: Personal Emergency Response Attendant
DX: S00.83XA Contusion of other part of head, initial encounter (principal); M79.662 Pain in left lower leg; K21.9 Gastro-esophageal reflux disease without esophagitis; I10 Essential (primary) hypertension; M19.90 Unspecified osteoarthritis, unspecified site; I48.91 Unspecified atrial fibrillation; Z86.73 Personal history of transient ischemic attack (TIA), and cerebral infarction without residual deficits; Z88.0 Allergy status to penicillin; Z88.2 Allergy status to sulfonamides; Z88.6 Allergy status to analgesic agent; Z88.8 Allergy status to other drugs, medicaments and biological substances; Z96.652 Presence of left artificial knee joint; W18.39XA Other fall on same level, initial encounter; Y93.89 Activity, other specified; Y92.89 Other specified places as the place of occurrence of the external cause; Y99.8 Other external cause status

== ENCOUNTER 2019-05-31 01:45 | Emergency (ER) | payer MEDICARE, BC, OTHER ==
[~2019-05-31] VITALS: Ht 157.5 cm; Wt 89.4 kg
[2019-05-31] MEDS ORDERED: COLACE100 MG PO (01:55)
[2019-05-31] MEDS ORDERED: ELIQUIS5 MG PO (01:55)
[2019-05-31] MEDS ORDERED: CLOTRIMAZOLE10 GM TRANSDERM (01:57)
[2019-05-31] MEDS ORDERED: NYSTATIN1 EA10 TRANSDERM (01:57)
[2019-05-31] MEDS ORDERED: TRAZODONE 150150 M1 PO (01:58)
[2019-05-31 02:33] LABS: ABSOLUTE EOSINOPHILS 0.1 thou/uL (0.0-0.7); ABSOLUTE LYMPHOCYTES 1.3 thou/uL (0.8-5.3); ABSOLUTE MONOCYTES 0.6 thou/uL (0.0-1.2); ABSOLUTE NEUTROPHILS 2.7 thou/uL (1.6-8.1); BASOPHILS 0.7 %; EOSINOPHILS 2.7 %; HEMATOCRIT 35.6 % (37.0-47.0); HEMOGLOBIN 12.2 gm/dL (12.0-15.0); LYMPHOCYTES 27.2 %; MCHC 34.1 g/dL (28.0-37.0); MCV 90.9 fL (80.0-100.0); MONOCYTES 12.6 %; MPV 9.9 fl. (7.2-11.1); NUCLEATED RBCS 0 /100WBC; PLATELET COUNT* 120 thou/uL (150-400); POLYS 56.8 %; RBC 3.92 mil/uL (4.20-5.00); RDW-CV 14.4 % (10.5-14.5); WBC 4.7 thou/uL (4.0-11.0)
[2019-05-31 02:45] LABS: CALCIUM 9.4 mg/dL (8.5-10.1); CREATININE 1.2 mg/dL (0.6-1.3); POTASSIUM 3.6 mmol/L (3.5-5.1)
[2019-05-31 02:59] LABS: ALBUMIN 2.9 g/dL (3.4-5.0); TOTAL BILIRUBIN 0.9 mg/dL (<0.1-1.0); TOTAL PROTEIN 6.3 g/dL (6.4-8.2)
[2019-05-31 04:50] VITALS: BP 188/81
[2019-05-31 06:14] LABS: URINE BILIRUBIN NEGATIVE (Negative); URINE BLOOD NEGATIVE (Negative); URINE CLARITY CLEAR; URINE COLOR YELLOW; URINE GLUCOSE-RANDOM NEGATIVE (Negative); URINE KETONES NEGATIVE (Negative); URINE LEUKOCYTES-REFLEX NEGATIVE (Negative); URINE NITRITE-REFLEX NEGATIVE (Negative); URINE PROTEIN NEGATIVE (Negative); URINE SPECIFIC GRAVITY 1.015 (1.005-1.030)
--- NOTE | 2019-05-31 16:40 | EKG ---
[place] [address] ELECTROCARDIOGRAM REPORT Name: FELIX MERLOS Room: [facility]#: [id number] Admission: 05/31/19 Attend Phys: Discharge: 05/31/19 Date of : 33 Date of Service: 05/31/19 0148 Report #: [id number] THIS REPORT FOR: //name// [facility] ED Test Date: 2019-05-31 Test Time: 01:48:32 Pat Name: FELIX MERLOS Department: Room: Gender: F Vat Operator: [place] : 1935 Requested By: Harsh Head Order Number: [id number] MD: Marcio Bloom Measurements Intervals [place] Rate: 83 P: IA: QRS: 37 QRSD: 78 T: -35 QT: 406 QTc: 477 Interpretive Statements Atrial fibrillation Low voltage, precordial leads Borderline repolarization abnormality Compared to ECG 02/22/2019 08:42:40 Low QRS voltage now present Electronically Signed On 05-31-2019 16:39:31 CDS SALES ADVISOR by Marcio Bloom [email or web address] <ELECTRONICALLY SIGNED> By: Marcio Bloom MD, [facility] 05/31/19 1639 0148 0148 Marcio Bloom MD, [facility] /EPI
== END 2019-05-31 06:20 ==
LOC: M.ERS 01:45
PROVIDERS: Emergency Medicine
DX: S00.11XA Contusion of right eyelid and periocular area, initial encounter (principal); S50.11XA Contusion of right forearm, initial encounter; S60.222A Contusion of left hand, initial encounter; I48.91 Unspecified atrial fibrillation; K21.9 Gastro-esophageal reflux disease without esophagitis; I10 Essential (primary) hypertension; M19.90 Unspecified osteoarthritis, unspecified site; Z96.652 Presence of left artificial knee joint; Z86.73 Personal history of transient ischemic attack (TIA), and cerebral infarction without residual deficits; Z88.2 Allergy status to sulfonamides; Z88.0 Allergy status to penicillin; Z88.6 Allergy status to analgesic agent; Z88.8 Allergy status to other drugs, medicaments and biological substances; W18.39XA Other fall on same level, initial encounter; Y93.01 Activity, walking, marching and hiking; Y92.002 Bathroom of unspecified non-institutional (private) residence as the place of occurrence of the external cause; Y99.8 Other external cause status

== ENCOUNTER 2019-06-26 20:18 | Inpatient (IN) | payer MEDICARE, BC, OTHER ==
[~2019-06-26] VITALS: Ht 154.9 cm; Wt 81.6 kg
[~2019-06-26 20:18] MED LIST changes: +CLOTRIMAZOLE10 GM TRANSDERM; +COLACE100 MG PO; +NYSTATIN1 EA10 TRANSDERM; +TRAZODONE 150150 M1 PO
[2019-06-26 20:23] VITALS: BP 122/68
[2019-06-26 21:03] LABS: HEMATOCRIT 39.6 % (37.0-47.0); HEMOGLOBIN 13.7 gm/dL (12.0-15.0); MCH 31.4 pg (26.0-34.0); MCHC 34.6 g/dL (28.0-37.0); MCV 90.8 fL (80.0-100.0); MPV 9.4 fl. (7.2-11.1); NUCLEATED RBCS 0 /100WBC; PLATELET COUNT* 175 thou/uL (150-400); RBC 4.36 mil/uL (4.20-5.00); WBC 6.6 thou/uL (4.0-11.0)
[2019-06-26 21:27] LABS: CALCIUM 10.1 mg/dL (8.5-10.1); CREATININE 1.2 mg/dL (0.6-1.3); POTASSIUM 3.9 mmol/L (3.5-5.1)
[2019-06-26 21:28] LABS: ALBUMIN 3.1 g/dL (3.4-5.0); TOTAL BILIRUBIN 0.7 mg/dL (<0.1-1.0); TOTAL PROTEIN 7.1 g/dL (6.4-8.2)
[2019-06-26 21:55] LABS: URINE BLOOD TRACE (Negative); URINE CLARITY CLEAR; URINE COLOR YELLOW; URINE GLUCOSE-RANDOM NEGATIVE (Negative); URINE KETONES NEGATIVE (Negative); URINE NITRITE-REFLEX NEGATIVE (Negative); URINE PROTEIN 2+ (Negative); URINE SPECIFIC GRAVITY >= 1.030 (1.005-1.030)
[2019-06-26 21:56] LABS: ICTOTEST (BILI CONFIRMATORY) Negative (Negative); SQUAMOUS 0-3 Few /LPF (0-3); URINE BILIRUBIN 1+ (Negative); URINE LEUKOCYTES-REFLEX 2+ (Negative); WBC CLUMPS Moderate (None Seen)
[2019-06-26 21:57] LABS: BACTERIA-REFLEX >30 Many /HPF (None Seen); CASTS None Seen /LPF (None Seen); CRYSTALS None Seen /LPF (None Seen); MUCUS 4-6 Moderate strn/LPF (None Seen); URINE WBC-REFLEX >25 Many /HPF (0-5)
[2019-06-26 22:01] LABS: ABSOLUTE MONOCYTES 0.2 thou/uL (0.0-1.2); ABSOLUTE NEUTROPHILS 5.4 thou/uL (1.6-8.1); ATYPICAL LYMPHS 6 %; PLATELET ESTIMATE ADEQUATE
[2019-06-26 22:17] LABS: APTT 30.3 Seconds (25.0-31.3); INR 1.2; PROTIME 12.7 Seconds (9.20-11.50)
[2019-06-26 23:00] VITALS: BP 135/76
[2019-06-26 23:28] VITALS: BP 154/90
--- NOTE | 2019-06-27 03:46 | NUR ---
ASSUMED CARE OF PT 06/26/19 AT APPROX 2315. PT A&OX4, ON ROOM AIR, VSS, PT UP WITH ASSIST TO BSC, CARDIAC RHYTHM A-FLUTTER. ASSESSMENTS AND HOURLY ROUNDINGS COMPLETED. WILL CONTINUE TO MONITOR.
[2019-06-27 04:35] VITALS: BP 173/85
[2019-06-27 08:00] VITALS: BP 157/87
--- NOTE | 2019-06-27 10:16 | EKG ---
[place] [address] ELECTROCARDIOGRAM REPORT Name: FELIX MERLOS Room: [address] ADM IN [facility].#: [id number] Admission: 06/26/19 Attend Phys: Maurilio Talyor, Discharge: Date of : 33 Date of Service: 06/26/192028 Report #: [id number] THIS REPORT FOR: //name// [facility] ED Test Date: 2019-06-26 Test Time: 20:29:19 Pat Name: FELIX MERLOS Department: Room: [facility] Gender: F Planning Technician: OTTO : 1935 Requested By: Parth Julien Order Number: [id number] MD: Marcio Bloom Measurements Intervals [place] Rate: 88 P: MS: QRS: 1 QRSD: 77 T: -60 QT: 319 QTc: 386 Interpretive Statements Atrial fibrillation nonspecific st changes Ventricular premature complex Inferior infarct, age indeterminate Compared to ECG 05/31/2019 01:48:32 Ventricular premature complex(es) now present Electronically Signed On 06-27-2019 10:14:49 CDT by Marcio Bloom [email or web address] <ELECTRONICALLY SIGNED> By: Marcio Bloom MD, [facility] 06/27/19 1014 28 28 Marcio Bloom MD, [facility] /EPI
[2019-06-27 13:11] VITALS: BP 166/85
--- NOTE | 2019-06-27 14:58 | NUR ---
CM spoke with Pt's dtr via phone. Pt resides the [facility] with her son. Per dtr, Pt has been doing well at home. Independent, uses a walker for mobility. Pt has a friend that lives across the [place] that has been cooking the majority of their meals. [employer] provides transportation. Dtr stated that she started looking into [facility] for Pt, but with the COVID going around, she really has not been able to get much done. Dtr has looked at [facility] in [place] which is an [facility] apartment, son can continue to live with her there, they offer more services. Hx of [facility]. Hx of acute rehab. Therapy evals pending. Dtr hopeful that Pt will be able to return home at al with HH. Following.
[2019-06-27 18:36] VITALS: BP 181/86
--- NOTE | 2019-06-27 18:51 | NUR ---
VSS, ORIENTED TO SELF, TIME AMD PLACE, ROOM AIR, AFIB TO AFLUTTER ON TELE AND BRADYS DOWN, INCONTINENCE AND URGENCY, UP WITH ONE, BRUISING ON FACE FROM FALL, HOURLY ROUNDING PERFORMED, POSSESSIONS AND CALL LIGHT WITHIN REACH
[2019-06-27 19:20] VITALS: BP 155/79
[2019-06-28 00:11] VITALS: BP 152/77
[2019-06-28 04:37] VITALS: BP 100/79
[2019-06-28 05:00] LABS: CALCIUM 9.5 mg/dL (8.5-10.1); MAGNESIUM 1.9 mg/dL (1.8-2.4); POTASSIUM 3.2 mmol/L (3.5-5.1)
[2019-06-28 08:00] VITALS: BP 151/61
[2019-06-28] MEDS ORDERED: CEFUROXIME250 MG PO (08:30)
[2019-06-28 09:45] VITALS: BP 151/61
[2019-06-28 10:09] VITALS: BP 151/61
--- NOTE | 2019-06-28 10:15 | NUR ---
PT IS ALERT AND FORGETFUL. MED SURG STATUS AND ALL VSS ON ROOM AIR. PT UP TO CHAIR FOR BREAKFAST. DENIES PAIN SOA. STATES SHE IS LOOKING FORWARD TO [place]. HOME HEALTH ORDERS IN PLACE. PLEASE SEE ASSESSMENT FOR ADDITIONAL INFO
--- NOTE | 2019-06-28 10:32 | NUR ---
Pt discharging to home today, faxed HH orders to [facility]. Red Letter to [employer] pick[employer] and transport between [phone]
== END 2019-06-28 14:10 | disposition home health service (06) | DRG 689 ==
LOC: M.ERS 20:18 → M.TBA-ER 22:00 → M.2W 22:00
PROVIDERS: Physician Assistant; ADMIT Internal Medicine
DX: N30.91 Cystitis, unspecified with hematuria (principal); G92 Toxic encephalopathy; I48.20 Chronic atrial fibrillation, unspecified; D68.59 Other primary thrombophilia; E44.1 Mild protein-calorie malnutrition; S80.02XA Contusion of left knee, initial encounter; I10 Essential (primary) hypertension; G47.00 Insomnia, unspecified; E66.9 Obesity, unspecified; R53.81 Other malaise; K21.9 Gastro-esophageal reflux disease without esophagitis; Z96.652 Presence of left artificial knee joint; W18.39XA Other fall on same level, initial encounter; Y93.E1 Activity, personal bathing and showering; Y92.89 Other specified places as the place of occurrence of the external cause; Y99.8 Other external cause status; Z86.73 Personal history of transient ischemic attack (TIA), and cerebral infarction without residual deficits; Z68.34 Body mass index [BMI] 34.0-34.9, adult; Z87.01 Personal history of pneumonia (recurrent); Z79.01 Long term (current) use of anticoagulants; Z79.899 Other long term (current) drug therapy; Z88.0 Allergy status to penicillin; Z88.2 Allergy status to sulfonamides; Z88.8 Allergy status to other drugs, medicaments and biological substances

== ENCOUNTER 2019-08-08 16:11 | Inpatient (IN) | payer MEDICARE, BC ==
[~2019-08-08] VITALS: Ht 154.9 cm; Wt 78.9 kg
[~2019-08-08 16:11] MED LIST changes: +CEFUROXIME250 MG PO
[2019-08-08 16:14] VITALS: BP 139/115
[2019-08-08 16:51] LABS: ABSOLUTE BASOPHILS 0.1 thou/uL (0.0-0.2); ABSOLUTE EOSINOPHILS 0.1 thou/uL (0.0-0.7); ABSOLUTE LYMPHOCYTES 1.2 thou/uL (0.8-5.3); ABSOLUTE MONOCYTES 0.8 thou/uL (0.0-1.2); ABSOLUTE NEUTROPHILS 4.4 thou/uL (1.6-8.1); EOSINOPHILS 1.4 %; HEMATOCRIT 38.2 % (37.0-47.0); HEMOGLOBIN 12.9 gm/dL (12.0-15.0); LYMPHOCYTES 18.6 %; MCH 30.6 pg (26.0-34.0); MCHC 33.8 g/dL (28.0-37.0); MCV 90.5 fL (80.0-100.0); MONOCYTES 12.9 %; MPV 10.5 fl. (7.2-11.1); NUCLEATED RBCS 0 /100WBC; PLATELET COUNT* 121 thou/uL (150-400); POLYS 66.1 %; RBC 4.22 mil/uL (4.20-5.00); RDW-CV 13.5 % (10.5-14.5); WBC 6.6 thou/uL (4.0-11.0)
[2019-08-08 16:55] LABS: URINE BLOOD NEGATIVE (Negative); URINE CLARITY CLEAR; URINE COLOR YELLOW; URINE GLUCOSE-RANDOM NEGATIVE (Negative); URINE KETONES NEGATIVE (Negative); URINE LEUKOCYTES-REFLEX NEGATIVE (Negative); URINE NITRITE-REFLEX NEGATIVE (Negative); URINE PROTEIN NEGATIVE (Negative); URINE SPECIFIC GRAVITY 1.025 (1.005-1.030)
[2019-08-08 16:58] LABS: ICTOTEST (BILI CONFIRMATORY) Negative (Negative); URINE BILIRUBIN 1+ (Negative)
[2019-08-08 17:01] LABS: APTT 30.8 Seconds (25.0-31.3); INR 1.2; PROTIME 12.4 Seconds (9.20-11.50)
[2019-08-08 17:03] LABS: CALCIUM 9.1 mg/dL (8.5-10.1); CREATININE 1.2 mg/dL (0.6-1.3); POTASSIUM 3.5 mmol/L (3.5-5.1)
[2019-08-08 17:12] LABS: ALBUMIN 2.9 g/dL (3.4-5.0); TOTAL BILIRUBIN 0.6 mg/dL (<0.1-1.0); TOTAL PROTEIN 6.5 g/dL (6.4-8.2)
[2019-08-08 20:12] VITALS: BP 151/85
[2019-08-08 20:30] VITALS: BP 168/88
[2019-08-09] VITALS (8 sets, daily range): BP systolic 117–154; BP diastolic 40–80
[2019-08-09 11:05] LABS: CALCIUM 8.9 mg/dL (8.5-10.1); CREATININE 1.1 mg/dL (0.6-1.3); MAGNESIUM 1.5 mg/dL (1.8-2.4); POTASSIUM 3.3 mmol/L (3.5-5.1)
--- NOTE | 2019-08-09 14:35 | EKG ---
[place] [address] ELECTROCARDIOGRAM REPORT Name: FELIX MERLOS Room: [address] ADM IN [facility].#: [id number] Admission: 08/08/19 Attend Phys: Peng Ridley Discharge: Date of : 33 Date of Service: 08/08/19 1700 Report #: [id number] THIS REPORT FOR: //name// [facility] ED Test Date: 2019-08-08 Test Time: 17:00:39 Pat Name: FELIX MERLOS Department: Room: [facility] Gender: F Flyer Maker: [place] : 1935 Requested By: Nhan Hernandez Order Number: [id number] MD: Marcio Bloom Measurements Intervals [place] Rate: 62 P: IA: QRS: 12 QRSD: 112 T: -8 QT: 392 QTc: 398 Interpretive Statements Atrial fibrillation Borderline intraventricular conduction delay Borderline T abnormalities, inferior leads Compared to ECG 06/26/2019 20:29:19 Ventricular premature complex(es) no longer present Electronically Signed On 08-09-2019 14:33:21 CDT by Marcio Bloom [email or web address] <ELECTRONICALLY SIGNED> By: Marcio Bloom MD, [facility] 08/09/19 1433 1700 1700 Marcio Bloom MD, [facility] /EPI
[2019-08-10] VITALS: BP 138/77
[2019-08-10 04:00] VITALS: BP 179/92
[2019-08-10 05:42] LABS: MAGNESIUM 2.1 mg/dL (1.8-2.4); POTASSIUM 3.5 mmol/L (3.5-5.1)
[2019-08-10 07:30] VITALS: BP 138/68
[2019-08-10 11:53] LABS: CALCIUM 9.2 mg/dL (8.5-10.1); CREATININE 1.1 mg/dL (0.6-1.3); POTASSIUM 3.8 mmol/L (3.5-5.1)
[2019-08-10 11:57] LABS: HEMATOCRIT 39.5 % (37.0-47.0); HEMOGLOBIN 13.3 gm/dL (12.0-15.0); MCH 30.6 pg (26.0-34.0); MCHC 33.6 g/dL (28.0-37.0); MCV 90.9 fL (80.0-100.0); MPV 11.9 fl. (7.2-11.1); NUCLEATED RBCS 0 /100WBC; PLATELET COUNT* 133 thou/uL (150-400); RBC 4.34 mil/uL (4.20-5.00); WBC 8.2 thou/uL (4.0-11.0)
[2019-08-10 12:00] VITALS: BP 163/85
[2019-08-10 12:26] LABS: ABSOLUTE MONOCYTES 1.3 thou/uL (0.0-1.2); ABSOLUTE NEUTROPHILS 3.9 thou/uL (1.6-8.1); PLATELET ESTIMATE ADEQUATE
[2019-08-10 16:00] VITALS: BP 124/67
[2019-08-10 20:00] VITALS: BP 177/73
[2019-08-11 00:05] VITALS: BP 153/64
[2019-08-11 04:00] VITALS: BP 134/62
[2019-08-11 04:41] LABS: ABSOLUTE EOSINOPHILS 0.1 thou/uL (0.0-0.7); ABSOLUTE LYMPHOCYTES 1.7 thou/uL (0.8-5.3); ABSOLUTE MONOCYTES 0.7 thou/uL (0.0-1.2); ABSOLUTE NEUTROPHILS 3.5 thou/uL (1.6-8.1); BASOPHILS 0.4 %; EOSINOPHILS 2.4 %; HEMATOCRIT 32.3 % (37.0-47.0); LYMPHOCYTES 27.4 %; MCH 31.2 pg (26.0-34.0); MCHC 34.9 g/dL (28.0-37.0); MCV 89.5 fL (80.0-100.0); MONOCYTES 12.2 %; MPV 10.1 fl. (7.2-11.1); NUCLEATED RBCS 0 /100WBC; PLATELET COUNT* 116 thou/uL (150-400); POLYS 57.6 %; RBC 3.61 mil/uL (4.20-5.00); RDW-CV 13.5 % (10.5-14.5); WBC 6.1 thou/uL (4.0-11.0)
[2019-08-11 04:58] LABS: CALCIUM 8.8 mg/dL (8.5-10.1); CREATININE 1.1 mg/dL (0.6-1.3); POTASSIUM 3.3 mmol/L (3.5-5.1)
[2019-08-11 05:24] LABS: HEMOGLOBIN 11.3 gm/dL (12.0-15.0)
[2019-08-11 08:43] VITALS: BP 131/70
[2019-08-11 11:55] VITALS: BP 112/53
[2019-08-11 16:30] VITALS: BP 133/73
[2019-08-11 20:00] VITALS: BP 158/61
[2019-08-12] VITALS: BP 186/89
[2019-08-12 04:00] VITALS: BP 148/67
[2019-08-12 05:13] LABS: CALCIUM 8.9 mg/dL (8.5-10.1); CREATININE 1.1 mg/dL (0.6-1.3); POTASSIUM 3.5 mmol/L (3.5-5.1)
[2019-08-12 08:10] VITALS: BP 111/66
[2019-08-12 12:19] VITALS: BP 173/81
[2019-08-12 13:43] VITALS: BP 173/81
[2019-08-12] MEDS ORDERED: TYLENOL325 MG PO (13:56)
== END 2019-08-12 16:00 | disposition home health service (06) | DRG 640 ==
LOC: M.ERS 16:11 → M.TBA-ER 17:44 → M.2W 17:44
PROVIDERS: Family Medicine; Internal Medicine; ADMIT Internal Medicine
DX: E86.0 Dehydration (principal); G93.41 Metabolic encephalopathy; K21.9 Gastro-esophageal reflux disease without esophagitis; I10 Essential (primary) hypertension; M19.90 Unspecified osteoarthritis, unspecified site; Z96.652 Presence of left artificial knee joint; I48.91 Unspecified atrial fibrillation; W18.39XA Other fall on same level, initial encounter; S80.02XA Contusion of left knee, initial encounter; Z79.01 Long term (current) use of anticoagulants; Z86.73 Personal history of transient ischemic attack (TIA), and cerebral infarction without residual deficits; Z87.01 Personal history of pneumonia (recurrent); Z79.899 Other long term (current) drug therapy; Z88.0 Allergy status to penicillin; Z88.2 Allergy status to sulfonamides; Z88.8 Allergy status to other drugs, medicaments and biological substances; Y93.89 Activity, other specified; Y92.89 Other specified places as the place of occurrence of the external cause; Y99.8 Other external cause status